=== PATIENT | female | born 1940 | race Hispanic/Latino ===

== ENCOUNTER 2016-10-16 20:30 | Emergency (ER) | payer OTHER ==
[~2016-10-16 20:30] MED LIST: ATORVASTATIN CA20 MG PO; ESCITALOPRAM10 MG PO; LEVOTHYROXIN0.137 MG PO; LOTREL 10 MG-201 CAP PO; NAMENDA10 MG PO; RITE AID KRILL500 MG PO; TORADOL10 MG PO; VITAMIN D31000 I1 PO
--- NOTE | 2016-10-16 20:49 | ED HEAD/FACIAL INJ COMPLAINT ---
History of Present Illness General Chief Complaint: Fall Stated Complaint: FALL LAC TO BACK OF HEAD/DIZZINESS/LUCERO Source: family, old records Exam Limitations: dementia Vital Signs & Intake/Output Vital Signs & Intake/Output Vital Signs Date Time Temp Pulse Resp B/P Pulse O2 O2 Flow FiO2 Ox Delivery Rate 10/16 2044 98.2 80 17 167/80 98 Room Air Room Air Allergies Coded Allergies: No Known Allergies (10/16/16) Reconcile Medications Amlodipine Besylate/Benazepr (Lotrel 10 MG-20 MG) 1 CAP CAP 1 CAP PO DAILY BP (Reported) Atorvastatin Calcium (Lipitor) 20 MG TABLET 1 TAB PO DAILY CHOLESTEROL ( Reported) CHOLECALCIFEROL (VITAMIN D3) (Vitamin D3) 1,000 UNIT CAPSULE 1 SGL PO DAILY SUPPLEMENT (Reported) Escitalopram Oxalate 10 MG TABLET 1 TAB PO DAILY MENTAL HEALTH (Reported) Ketorolac Tromethamine (Toradol) 10 MG TAB 1 TAB PO BID PRN HEADACHE Krill Oil ([employer] Krill Oil) (Unknown Strength) SGL (Unknown Dose) PO DAILY SUPPLEMENT (Reported) Levothyroxine Sodium 0.137 MG TAB 1 TAB PO DAILY AC THYROID (Reported) Memantine Hydrochloride (Namenda) 10 MG TABLET 1 TAB PO DAILY DEMENTIA ( Reported) Triage Note: PT TO TRIAGE FOR FALLING BACKWARDS AND HITTING THE BACK OF HER HEAD. PT HAS DEMENTIA AND IS UNABLE TO EXPLAINED SITUATION. FAMILY EXPLAINS THAT SHE WAS OUTSIDE WHEN THEY HEARD A THUD. FAMILY STATES THEY WENT OUT IMMEDIATELY AND FOUND HER ON HER BACK WITH A LAC TO THE BACK OF THE HEAD. THEY ARE UNSURE IF SHE LOST CONSCIOUSNESS. SHE COMPLAINS OF HEAD PAIN. BLEEDING CONTROLED BUT LAC IS NO VISIUALED TO CLOTS IN HAIR. PT IS NOT ON BLOOD THINNERS. Triage Nurses Notes Reviewed? yes HPI: Patient had an unwitnessed fall at home. Family thinks that she got tangled in her slippers however they're not sure since they were not with her at the time. Patient does not have a history of falls. Patient does have Alzheimer's dementia is unable to provide any history. Patient does have a small laceration to the back of her head. Bleeding was controlled prior to arrival. Patient has been acting appropriately since the fall per the family. Past History Travel History Traveled to [place] past 21 day No Medical History Any Pertinent Medical History? see below for history Neurological: dementia EENT: NONE Cardiovascular: hypertension, hyperlipidemia Respiratory: NONE Gastrointestinal: NONE Hepatic: NONE Renal: NONE Musculoskeletal: NONE Psychiatric: NONE Endocrine: NONE Blood Disorders: NONE Cancer(s): NONE PARALEGAL/Reproductive: NONE Pneumonia Vaccine: 08/18/10 Influenza Vaccine: 03/21/11 Surgical History Surgical History: non-contributory Psychosocial History Who do you live with Spouse What is your primary language Guatemalan Tobacco Use: Never used ETOH Use: denies use Illicit Drug Use: denies illicit drug use Family History Hx Contributory? No Review of Systems Review of Systems Constitutional: Reports: see HPI. Physical Exam Physical Exam General Appearance: well developed/nourished, awake Head: SMALL SUPERFICIAL LACERATION TO POSTERIOR SCALP, NO SUTURES OR GUERO NEEDED Eyes: Bilateral: PERRL, EOMI. Ears, Nose, Throat: normal pharynx, hearing grossly normal Neck: normal inspection, supple Respiratory: normal breath sounds, chest non-tender, no respiratory distress, lungs clear Cardiovascular: regular rate/rhythm, normal peripheral pulses Gastrointestinal: normal bowel sounds, soft Extremities: normal inspection, normal capillary refill, normal range of motion, no edema Psychiatric: awake Cranial Nerves: normal hearing, PERRL Coordination/Gait: normal gait Motor/Sensory: no motor/sensory deficits Skin: intact, normal color, warm/dry Progress Differential Diagnosis: c-spine injury, ICH, skull fracture Plan of Care: Orders Procedure Date/time Status Telemetry/Mammal Control Agent 10/17 2047 Active TROPONIN LEVEL 10/17 2047 Complete COMPREHENSIVE METABOLIC PANEL 10/17 2047 Complete CBC WITHOUT DIFFERENTIAL 10/17 2047 Complete EKG 10/17 2047 Active Laboratory Tests 10/16/162121: CBC w Diff NO MAN DIFF REQ, RBC 4.73, MCV 84.8, MCH 29.0, RDW 13.3, MPV 6.9 L, Gran % 84.8 H, Lymphocytes % 9.6 L, Monocytes % 5.0, Eosinophils % 0.4, Basophils % 0.2, Absolute Granulocytes 9.3 H, Absolute Lymphocytes 1.0 L, Absolute Monocytes 0.5, Absolute Eosinophils 0, Absolute Basophils 0, PUBS MCHC 34.2 10/16/162120: Anion Gap 12, Estimated GFR > 60, BUN/Creatinine Ratio 22.9, Glucose 159 H, Calcium 9.8, Total Bilirubin 0.4, AST 22, ALT 38, Alkaline Phosphatase 74, Troponin I < 0.01, Total Protein 6.9, Albumin 4.2, Globulin 2.7, Albumin/ Globulin Ratio 1.6 10/16/162047: Urine Color Cancelled, Urine Clarity Cancelled, Urine pH Cancelled, Ur Specific [place] Cancelled, Urine Protein Cancelled, Urine Ketones Cancelled, Urine Nitrite Cancelled, Urine Bilirubin Cancelled, Urine Urobilinogen Cancelled, Ur Leukocyte Esterase Cancelled, Ur Microscopic Cancelled, Urine Hemoglobin Cancelled, Urine Glucose Cancelled Diagnostic Imaging: Viewed by Me: CT Scan. Discussed w/RAD: CT Scan. Radiology Impression: PATIENT: DASIA EARLY PRESENT AGE: 76 PATIENT ACCOUNT NO: [id number] : 40 LOCATION: [facility] ORDERING PHYSICIAN: MILENA RIVAS MD SERVICE DATE: 10/16/16-2032 EXAM TYPE: CAT - CT CERV SPINE WO IV CONTRAST; CT HEAD WO IV CONTRAST EXAMINATION: CT HEAD WITHOUT CONTRAST CT CERVICAL SPINE WITHOUT CONTRAST CLINICAL INFORMATION: Fall. Head injury. COMPARISON: CT head 10/06/2013 TECHNIQUE: Imaging was performed from the skull base to vertex without intravenous administration of contrast. In addition, helical noncontrast CT imaging was acquired through the cervical spine and source images were reviewed along with axial reconstructions and sagittal and coronal MPRs. DLP: 825.45 mGy-cm FINDINGS: HEAD: Scalp hematoma at the posterior occipital parietal region on the left. No intracranial mass, hemorrhage, or midline shift is visualized. The ventricles and sulci are age- appropriate. No extra-axial collections are identified. The paranasal sinuses and mastoid air cells are well aerated. CERVICAL SPINE: There is no evidence of acute cervical spine fracture. Vertebral bodies remain normal in height, alignment is anatomic. No pre- or paravertebral soft tissue abnormality is identified. Degenerative disc narrowing with endplate spurs C5-C6 and C6-C7 disc levels. Limited assessment of the lung apices is unremarkable. IMPRESSION: 1. No acute intracranial pathology. 2. No CT evidence of acute cervical spine fracture or traumatic subluxation DICTATED BY: SARA MANDEL MD DATE/TIME DICTATED:2114 EXAMINATION SUPERVISOR:DUSTY DATE/TIME TRANSCRIBED:10/16/162114 CONFIDENTIAL, DO NOT COPY WITHOUT APPROPRIATE AUTHORIZATION. <Electronically signed in Other Vendor System> SIGNED BY: SARA MANDEL MD 10/16/162123 Initial ED EKG: normal sinus rhythm, LVH, nonspecific ST T wave chg Prior EKG: unchanged Departure Departure Disposition: HOME OR SELF CARE Condition: Stable Clinical Impression Primary Impression: Head injury Referrals: SARAH MADRID MD (PCP/Family) Additional Instructions: REUTRN FOR ANY CONCERNS Departure Forms: Customer Survey General Discharge Information
--- NOTE | 2016-10-16 21:24 | CT SCAN REPORT ---
EXAMINATION: CT HEAD WITHOUT CONTRAST CT CERVICAL SPINE WITHOUT CONTRAST CLINICAL INFORMATION: Fall. Head injury. COMPARISON: CT head 10/06/2013 TECHNIQUE: Imaging was performed from the skull base to vertex without intravenous administration of contrast. In addition, helical noncontrast CT imaging was acquired through the cervical spine and source images were reviewed along with axial reconstructions and sagittal and coronal MPRs. DLP: 825.45 mGy-cm FINDINGS: HEAD: Scalp hematoma at the posterior occipital parietal region on the left. No intracranial mass, hemorrhage, or midline shift is visualized. The ventricles and sulci are age-appropriate. No extra-axial collections are identified. The paranasal sinuses and mastoid air cells are well aerated. CERVICAL SPINE: There is no evidence of acute cervical spine fracture. Vertebral bodies remain normal in height, alignment is anatomic. No pre- or paravertebral soft tissue abnormality is identified. Degenerative disc narrowing with endplate spurs C5-C6 and C6-C7 disc levels. Limited assessment of the lung apices is unremarkable. IMPRESSION: 1. No acute intracranial pathology. 2. No CT evidence of acute cervical spine fracture or traumatic subluxation
[2016-10-16 21:29] LABS: ABSOLUTE BASOPHIL COUNT 0 /CUMM (0.0-0.2); ABSOLUTE EOSINOPHIL COUNT 0 /CUMM (0.0-0.7); ABSOLUTE GRANULOCYTE CT 9.3 /CUMM (1.4-6.5); ABSOLUTE MONOCYTE COUNT 0.5 /CUMM (0.10-0.60); BASOPHIL % 0.2 % (0.0-2.0); EOSINOPHIL % 0.4 % (0-5); GRANULOCYTE % 84.8 % (42.2-75.2); HEMATOCRIT 40.1 % (37-47); MEAN CORPUSCULAR HGB CONC 34.2 G/DL (33.0-37.0); MEAN CORPUSCULAR VOLUME 84.8 FL (81.0-99.0); MEAN PLATELET VOLUME 6.9 FL (7.4-10.4); PLATELET COUNT 239 /CUMM (130-400); RBC DISTRIBUTION WIDTH 13.3 % (11.5-14.5); RED BLOOD CELL CT 4.73 /CUMM (4.20-5.40); WHITE BLOOD CELL COUNT 10.9 /CUMM (4.8-10.8)
[2016-10-16 23:24] VITALS: BP 150/72
== END 2016-10-16 23:24 ==
LOC: ERH 20:30
PROVIDERS: Emergency Medicine
DX: S09.90XA Unspecified injury of head, initial encounter (principal); W19.XXXA Unspecified fall, initial encounter; Y92.009 Unspecified place in unspecified non-institutional (private) residence as the place of occurrence of the external cause; Y93.9 Activity, unspecified
CPT/HCPCS: 93005; 93010

== ENCOUNTER 2017-08-14 18:46 | Inpatient (IN) | payer OTHER ==
[~2017-08-14] VITALS: Ht 152.4 cm; Wt 45.4 kg
[2017-08-14 19:22] LABS: ABSOLUTE BASOPHIL COUNT 0 /CUMM (0.0-0.2); ABSOLUTE EOSINOPHIL COUNT 0 /CUMM (0.0-0.7); ABSOLUTE GRANULOCYTE CT 4.8 /CUMM (1.4-6.5); ABSOLUTE LYMPH COUNT 0.7 /CUMM (1.2-3.4); ABSOLUTE MONOCYTE COUNT 0.7 /CUMM (0.10-0.60); BASOPHIL % 0.5 % (0.0-2.0); EOSINOPHIL % 0.1 % (0-5); HEMATOCRIT 39.6 % (37-47); MEAN CORPUSCULAR HGB 28.6 PG (27.0-31.0); MEAN CORPUSCULAR HGB CONC 34.4 G/DL (33.0-37.0); MEAN CORPUSCULAR VOLUME 83.1 FL (81.0-99.0); MEAN PLATELET VOLUME 7.4 FL (7.4-10.4); PLATELET COUNT 177 /CUMM (130-400); RBC DISTRIBUTION WIDTH 12.6 % (11.5-14.5); RED BLOOD CELL CT 4.77 /CUMM (4.20-5.40); WHITE BLOOD CELL COUNT 6.3 /CUMM (4.8-10.8)
--- NOTE | 2017-08-14 19:27 | ED MVC/FALL/TRAUMA COMPLAINT ---
See Addendum History of Present Illness General Chief Complaint: Fall Stated Complaint: FALL, AMS Source: family Exam Limitations: clinical condition, dementia Vital Signs & Intake/Output Vital Signs & Intake/Output Vital Signs Date Time Temp Pulse Resp B/P B/P Pulse O2 O2 Flow FiO2 Mean Ox Delivery Rate 08/14 2129 98.6 67 20 116/58 97 08/14 2032 Room Air 08/14 1856 98.3 65 18 141/63 98 Room Air Allergies Coded Allergies: No Known Allergies (10/16/16) Reconcile Medications Alendronate Sodium (Fosamax) 70 MG TABLET 1 TAB PO QSUN OSTEOPOROSIS ( Reported) in the morning, at least 30 minutes before the first food, beverage, or medication of the day Amlodipine Besylate/Benazepril (Amlodipine-Benazepril 10-20 MG) 10 MG-20 MG CAPSULE 1 CAP PO DAILY BP (Reported) Atorvastatin Calcium 20 MG TABLET 1 TAB PO DAILY CHOLESTEROL (Reported) Cholecalciferol (Vitamin D3) (Vitamin D) 1,000 UNIT TABLET 1 TAB PO DAILY SUPPLEMENT (Reported) Escitalopram Oxalate 10 MG TABLET 1 TAB PO DAILY MENTAL HEALTH (Reported) Fish Oil/Borage/Flax/Om3,6,9#1 ([place] 3-6-9 1,200 MG Softgel) (Unknown Strength) CAPSULE (Unknown Dose) PO DAILY SUPPLEMENT (Reported) Levothyroxine Sodium 125 MCG TABLET 1 TAB PO DAILY THYROID (Reported) Memantine HCl (Namenda XR) 14 MG CAP.SPR.24 1 CAP PO DAILY MEMORY (Reported) Triage Note: PT BIBA FROM HOME S/P UNWITNESSED FALL. FAMILY FOUND PT IN BED WITH ABRASIONS TO BILATERAL KNESS AND BUMP TO RIGHT FOREHEAD. FAMILY ALSO FOUND A PUDDLE OF URINE ON FLOOR NEXT TO BED. PER EMS PT RESPONDED TO FIMALLY WITH VIGOROUS STERNAL RUB AND WAS HAVING AMS MORE THAN NORMAL. HX DEMENTIA. PT RESPONDING ON ARRIVAL WHEN SPOKEN TO IN [place]. Triage Nurses Notes Reviewed? yes Onset: Abrupt Duration: UNKNOWN DURATION Timing: single episode today Severity: moderate Injuries/Fall Location: head, lower extremity Method of Injury: fall Loss of Consciousness: unsure Modifying Factors: Worsens With: movement. Associated Symptoms: confusion : No HPI: 77 yo woman, h/o dementia, from home, found by family with increased confusion. Per her daughter, she was found after having fallen in the bathroom. She was brought to bed. She had urinated upon herself. Her daughter notes increased confusion and lethargy. At baseline, she is verbal , slightly confused, and able to ambulate. Presently, she is minimally responsive to verbal stimuli and non verbal, resting comfortably in bed, per the family. Past History Medical History Any Pertinent Medical History? 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 No Review of Systems Review of Systems Constitutional: Reports: no symptoms. Eyes: Reports: no symptoms. Ears, Nose, Throat, Mouth: Reports: no symptoms. Respiratory: Reports: no symptoms. Cardiovascular: Reports: no symptoms. Gastrointestinal/Abdominal: Reports: no symptoms. Genitourinary: Reports: no symptoms. Musculoskeletal: Reports: no symptoms. Skin: Reports: no symptoms. Neurological/Psychological: Reports: no symptoms. All Other Systems: Reviewed and Negative Physical Exam Physical Exam General Appearance: well developed/nourished, lethargic Head: abrasion to right forehead Eyes: Bilateral: normal appearance, PERRL, EOMI. Ears, Nose, Throat, Mouth: dry mucosa Neck: in a collar, no focal tenderness, exam compromised by pt condition Respiratory: normal breath sounds, chest non-tender, no respiratory distress, quiet respiration, lungs clear Cardiovascular: regular rate/rhythm Gastrointestinal: normal bowel sounds, soft, non-tender, no organomegaly Extremities: no focal bony tenderness. bilateral knee with abrasions, no bony deformity. Neurologic/Psych: no motor/sensory deficits, lethargic Skin: warm/dry [place] Coma Score Michelle Coma Score Response Value Best Eye Response (Michelle): open to voice 3 Best Verbal Response: no verbal response 1 Best Motor Response: localizing pain 5 Total 9 Core Measures ACS in differential dx? No CVA/TIA Diagnosis No Sepsis Present: No Sepsis Focused Exam Completed? No Progress Differential Diagnosis: C/T/L spine injury, ext injury, ICH, pelvis injury Plan of Care: Orders Procedure Date/time Status Nothing by Mouth 08/15 B Active Saline Lock 08/14 2213 Active Misc Message 08/14 2213 Active ED Holding Orders 08/14 2213 Active Admit to inpatient 08/14 2213 Active Vital Signs 08/14 2213 Active Code Status 08/14 2213 Active Straight Cath 08/14 1946 Active Add-on Test (ER Only) 08/14 1936 Active ARTERIAL BLOOD GAS (GEN) 08/14 1929 Complete Add-on Test (ER Only) 08/14 1928 Active URINALYSIS 08/14 1928 Complete LACTIC ACID 08/14 1910 Complete CREATINE PHOSPHOKINASE 08/14 1910 Complete TROPONIN LEVEL 08/14 1904 Complete LIPASE 08/14 1904 Complete HEPATIC FUNCTION PANEL 08/14 1904 Complete CBC WITHOUT DIFFERENTIAL 08/14 1904 Complete BASIC METABOLIC PANEL 08/14 1904 Complete AMYLASE 08/14 1904 Complete EKG 08/14 1904 Active Current Medications Sig/Nicki Start time Last Medication Dose Stop Time Status Admin Sodium Chloride 1,000 ML BOLUS ONE 08/14 2129 AC 08/14 (Normal Saline 0.9%) 08/14 2228 214 Laboratory Tests 08/14/172119: pH 7.48 H, pCO2 32 L, pO2 93, HCO3 23, ABG O2 Sat (Measured) 97.0, Carboxyhemoglobin 0.2 L, O2 Concentration % RA, Phlebotomy Draw Site RIGHT RADIAL 08/14/171939: Urinalysis LIGHT H, Urine Color YEL, Urine Clarity HAZY H, Urine pH 6.5, Ur Specific [place] 1.020, Urine Protein 30 H, Urine Ketones 15 H, Urine Nitrite NEG, Urine Bilirubin NEG, Urine Urobilinogen 0.2, Ur Leukocyte Esterase NEG, Ur Microscopic SEDIMENT EXAMINED, Urine WBC 1-3 H, Urine Hemoglobin NEG, Urine Glucose NEG 08/14/171910: Anion Gap 12, Estimated GFR > 60, BUN/Creatinine Ratio 31.3 H, Glucose 107 H, Lactic Acid 0.9, Calcium 9.8, Total Bilirubin 0.6, Direct Bilirubin 0.2, AST 46 H, ALT 52, Alkaline Phosphatase 69, Creatine Kinase 495 H, Troponin I < 0.01, Total Protein 6.9, Albumin 4.3, Amylase 57, Lipase 81, CBC w Diff NO MAN DIFF REQ, RBC 4.77, MCV 83.1, MCH 28.6, MCHC 34.4, RDW 12.6, MPV 7.4, Gran % 76.0 H, Lymphocytes % 11.5 L, Monocytes % 11.9 H, Eosinophils % 0.1, Basophils % 0.5, Absolute Granulocytes 4.8, Absolute Lymphocytes 0.7 L, Absolute Monocytes 0.7 H, Absolute Eosinophils 0, Absolute Basophils 0 Diagnostic Imaging: Viewed by Me: CT Scan. Discussed w/RAD: CT Scan. Radiology Impression: PATIENT: DASIA EARLY PRESENT AGE: 77 PATIENT ACCOUNT NO: [id number] : 40 LOCATION: [facility] ORDERING PHYSICIAN: Demarco Lorenzo MD SERVICE DATE: 08/14/17 EXAM TYPE: CAT - CT CERV SPINE WO IV CONTRAST; CT HEAD WO IV CONTRAST EXAMINATION: CT HEAD WITHOUT CONTRAST CT CERVICAL SPINE WITHOUT CONTRAST CLINICAL INFORMATION: Injury , trauma. COMPARISON: CT scan of the head and cervical spine 10/16/2016. TECHNIQUE: Multidetector CT imaging of the head and cervical spine was performed without the use of intravenous contrast. Coronal and sagittal reformatted images were generated at the technologist workstation. DLP: 825.45 mGy-cm. FINDINGS: CT head: There is no evidence of acute intracranial hemorrhage or territorial infarction. No abnormal mass-effect or midline shift is seen. [place] to white matter differentiation is well preserved. No extra-axial fluid collections are identified. There is commensurate prominence of the ventricles and sulci consistent with mild diffuse volume loss. There is low-attenuation in the periventricular and subcortical white matter consistent with chronic microvascular ischemic changes. There are no acute osseous findings. There is irregularity of the nasal bones, most consistent with sequelae of old trauma. There are no acute scalp contusions or hematomas. There is a scar in the region of the previously noted posterior scalp nondenominational. There is hyperostosis frontalis interna. The mastoid air cells are well-aerated. There are secretions in the posterior left nasal cavity and there is mucoperiosteal thickening in the left maxillary sinus. CT cervical spine: There is reversal of the cervical lordosis at the level of C5-C6. There is marked narrowing of intervertebral disc height at C5-C6 and C6-C7 with marginal osteophytes, demonstrated on the prior study. There are no acute compression fractures. The lateral masses of C1 and C2 are normally aligned and the dens is intact. There is normal alignment of the atlantooccipital joints. Vertebral body heights are maintained. There are multilevel facet arthropathic changes. There are atheromatous calcifications of the left vertebral artery. There is an area of increased density in the posterior right thyroid gland which measures 0.5 cm in diameter. The lung apices are well-aerated. IMPRESSION: 1. There are no acute bleeds or territorial infarcts. There are no fractures or large scalp contusions. 2. There are degenerative changes in the cervical spine which were demonstrated on prior imaging. There are no acute fractures or subluxations. DICTATED BY: Rusty Casper MD DATE/TIME DICTATED:08/14/172015 PAYROLL ANALYST:DUSTY DATE/TIME TRANSCRIBED:08/14/172015 CONFIDENTIAL, DO NOT COPY WITHOUT APPROPRIATE AUTHORIZATION. <Electronically signed in Other Vendor System> SIGNED BY: Rusty aCsper MD 08/14/172027, PATIENT: DASIA EARLY PRESENT AGE: 77 PATIENT ACCOUNT NO: [id number] : 40 LOCATION: [facility] ORDERING PHYSICIAN: Demarco Lorenzo MD SERVICE DATE: 08/14/17 EXAM TYPE: RAD - XRY-KNEE COMPLETE LEFT; XRY-KNEE COMPLETE RIGHT EXAMINATIONS: BILATERAL KNEES 4 VIEWS CLINICAL INFORMATION: Fall, trauma. COMPARISON: None. TECHNIQUE: AP, lateral and left and right oblique views of the left and right knees were obtained. FINDINGS: Right knee: There are no fractures or dislocations, and the patellofemoral and knee joints are normally aligned. There is mild soft tissue swelling along the medial aspect of the knee joint superiorly. There is no suprapatellar joint effusion. There are no radiodense foreign bodies. Left knee: There is normal alignment of the patellofemoral and knee joints. No fractures are demonstrated. The soft tissues are unremarkable. There is no joint effusion. There are no radiodense foreign bodies. IMPRESSION: 1. There are no fractures or subluxations. 2. There appears to be some soft tissue swelling along the medial aspect of the right knee joint. Correlate clinically. There are no definite joint effusions. DICTATED BY: Rusty Casper MD DATE/TIME DICTATED:08/14/172042 PAYROLL ANALYST:DUSTY DATE/TIME TRANSCRIBED:08/14/172042 CONFIDENTIAL, DO NOT COPY WITHOUT APPROPRIATE AUTHORIZATION. <Electronically signed in Other Vendor System> SIGNED BY: Rusty Casper MD 08/14/172050 Initial ED EKG: normal intervals, inferior q waves Departure Departure Disposition: STILL A PATIENT Condition: Stable Clinical Impression Primary Impression: Dementia Secondary Impressions: Dehydration, Elevated CPK, Mental status change Referrals: Babar Puente MD (PCP/Family) Departure Forms: Customer Survey General Discharge Information Admission Note Spoke With: Babar Puente MD Documentation of Exam: Documentation of any treatments & extenuating circumstances including Concerns Regarding Discharge (functional status, medication knowledge or non-compliance, living conditions, etc.) that warrant an admission rather than observation: pt with increased lethargy, in context of dehydration, fall, dementia... pt merits iv fluids and re-assessment in AM to consider if returns to baseline. pt likely will need short vs superintendent container terminal rehab.
[2017-08-14] MEDS ORDERED: AMLODIPINE-BEN1 EAC4 PO (19:45)
[2017-08-14] MEDS ORDERED: NAMENDA XR14 M1 PO (19:46)
[2017-08-14] MEDS ORDERED: ESCITALOPRAM OX10 MG PO (19:46)
[2017-08-14] MEDS ORDERED: ATORVASTATIN CA20 M1 PO (19:48)
[2017-08-14] MEDS ORDERED: LEVOTHYROXINE125 MCG PO (19:48)
[2017-08-14] MEDS ORDERED: VITAMIN D1000 UNIT PO (19:49)
[2017-08-14] MEDS ORDERED: OMEGA 3-6-9 11200 MG PO (19:49)
[2017-08-14] MEDS ORDERED: FOSAMAX70 M1 PO (19:49)
--- NOTE | 2017-08-14 20:28 | CT SCAN REPORT ---
EXAMINATION: CT HEAD WITHOUT CONTRAST CT CERVICAL SPINE WITHOUT CONTRAST CLINICAL INFORMATION: Injury, trauma. COMPARISON: CT scan of the head and cervical spine 10/16/2016. TECHNIQUE: Multidetector CT imaging of the head and cervical spine was performed without the use of intravenous contrast. Coronal and sagittal reformatted images were generated at the technologist workstation. DLP: 825.45 mGy-cm. FINDINGS: CT head: There is no evidence of acute intracranial hemorrhage or territorial infarction. No abnormal mass-effect or midline shift is seen. [place] to white matter differentiation is well preserved. No extra-axial fluid collections are identified. There is commensurate prominence of the ventricles and sulci consistent with mild diffuse volume loss. There is low-attenuation in the periventricular and subcortical white matter consistent with chronic microvascular ischemic changes. There are no acute osseous findings. There is irregularity of the nasal bones, most consistent with sequelae of old trauma. There are no acute scalp contusions or hematomas. There is a scar in the region of the previously noted posterior scalp nondenominational. There is hyperostosis frontalis interna. The mastoid air cells are well-aerated. There are secretions in the posterior left nasal cavity and there is mucoperiosteal thickening in the left maxillary sinus. CT cervical spine: There is reversal of the cervical lordosis at the level of C5-C6. There is marked narrowing of intervertebral disc height at C5-C6 and C6-C7 with marginal osteophytes, demonstrated on the prior study. There are no acute compression fractures. The lateral masses of C1 and C2 are normally aligned and the dens is intact. There is normal alignment of the atlantooccipital joints. Vertebral body heights are maintained. There are multilevel facet arthropathic changes. There are atheromatous calcifications of the left vertebral artery. There is an area of increased density in the posterior right thyroid gland which measures 0.5 cm in diameter. The lung apices are well-aerated. IMPRESSION: 1. There are no acute bleeds or territorial infarcts. There are no fractures or large scalp contusions. 2. There are degenerative changes in the cervical spine which were demonstrated on prior imaging. There are no acute fractures or subluxations.
--- NOTE | 2017-08-14 20:51 | RADIOLOGY REPORT ---
EXAMINATIONS: BILATERAL KNEES 4 VIEWS CLINICAL INFORMATION: Fall, trauma. COMPARISON: None. TECHNIQUE: AP, lateral and left and right oblique views of the left and right knees were obtained. FINDINGS: Right knee: There are no fractures or dislocations, and the patellofemoral and knee joints are normally aligned. There is mild soft tissue swelling along the medial aspect of the knee joint superiorly. There is no suprapatellar joint effusion. There are no radiodense foreign bodies. Left knee: There is normal alignment of the patellofemoral and knee joints. No fractures are demonstrated. The soft tissues are unremarkable. There is no joint effusion. There are no radiodense foreign bodies. IMPRESSION: 1. There are no fractures or subluxations. 2. There appears to be some soft tissue swelling along the medial aspect of the right knee joint. Correlate clinically. There are no definite joint effusions.
--- NOTE | 2017-08-14 20:53 | CT SCAN REPORT ---
EXAMINATION: CT CHEST WITHOUT IV CONTRAST CT ABDOMEN AND PELVIS WITHOUT IV CONTRAST CLINICAL INFORMATION: 77-year-old female presents with history of injury/trauma. COMPARISON: 06/22/2012. TECHNIQUE: Noncontrast multidetector CT imaging examination of the chest, abdomen and pelvis was performed . Axial images are displayed at 0.625 mm and 5 mm slice thickness. Coronal and sagittal reformatted images were generated at the technologist's workstation and submitted for review. DLP: 394 mGy-cm FINDINGS: CHEST - LUNGS and PLEURA: Trachea and central airways are widely patent and normal in caliber. Small, 0.3 cm noncalcified nodule of the right upper lobe (image 122, series 5). Small, 0.2 cm calcified granuloma of the left lower lobe (image 317, series 5). No suspicious lung nodule or mass. Mild atelectasis of left lower lobe. No pulmonary consolidation, edema, pneumothorax or pleural effusion. MEDIASTINUM: The heart size is normal. [id number] atherosclerotic calcification of coronary arteries and thoracic aorta without aortic aneurysm. No pericardial effusion. The esophagus is unremarkable. Thyroid gland is atrophied. No mediastinal mass or fluid collection. LYMPHATICS: No pathologic sized axillary, hilar or mediastinal lymph nodes. CHEST WALL/BONES: Discovertebral degenerative changes of C5-C6 and C6-C7. Also, mild multilevel disc space narrowing and osteophyte formation of the thoracic spine. Thoracic vertebra have normal height and alignment. No evidence of an acute, displaced rib fracture or sternal injury. Small sclerotic focus in the right scapula is likely a bone island. Also, the small nonaggressive sclerotic focus in the left lateral ninth rib is likely a bone island. There is a hemangioma of the T11 vertebral body. ABDOMEN AND PELVIS - HEPATOBILIARY: Liver has normal size, contour and attenuation. No perihepatic fluid collection. Gallbladder is unremarkable. No intrahepatic or extrahepatic bile duct dilatation. PANCREAS: Unremarkable. SPLEEN: Unremarkable. ADRENAL GLANDS: Unremarkable. KIDNEYS, URETERS, BLADDER: Kidneys are normal in size. No nephrolithiasis, hydronephrosis or perinephric edema. 0.6 cm hyperdense focus within the interpolar region left kidney has attenuation of 70 HU, compatible with a hyperdense cyst. The ureters are unremarkable. Urinary bladder has some hyperdense material along its left posterolateral wall, likely calculi; this may be confirmed on bladder ultrasound. GI TRACT AND PERITONEUM: Bowel loops are normal in size. Appendix is normal. No evidence of acute inflammation or obstruction along the gastrointestinal tract. No hemoperitoneum or pneumoperitoneum. ABDOMINAL WALL: No abdominal wall hematoma. VASCULAR: Mild atherosclerotic calcification of the abdominal aorta and iliac arteries without aneurysm. LYMPH NODES: No pathologic sized lymph nodes within the abdomen or pelvis. PELVIC VISCERA: There are calcified leiomyomas of the uterus. No adnexal mass or pelvic free fluid. OSSEOUS STRUCTURES: Lumbar vertebra have well preserved height and alignment. No acute fracture or subluxation in the lumbar spine, pelvis or proximal femurs. There are a several bone islands in the pelvis. No suspicious osseous lesions. IMPRESSION: 1. No evidence of traumatic injury within the chest, abdomen or pelvis on this noncontrast examination. 2. Leiomyomatous uterus. 3. There is some heterogeneous hyperdensity along the left posterolateral bladder wall -- presumably bladder calculi. This incidental finding may be confirmed on a routine follow-up bladder ultrasound examination.
--- NOTE | 2017-08-14 22:27 | History & Physical ---
See Addendum Abiel ROBLES,[facility] 08/14/17 3066: General Information and HPI MD Statement: I have seen and personally examined DASIA EARLY and documented this H&P. The patient is a 77 year old F who presented with a patient stated chief complaint of [fall]. Source of Information: family History of Present Illness: 77-year-old female with a past medical history of hypertension, hyperlipidemia, hypothyroidism, Alzheimer's dementia presenting after a presumed fall. The history is given by the patient's son and daughter. They state that the patient was found in bed by a cousin around 5 PM. There was noted stool found outside the bedroom door. They also noticed a bump on her head. They state that the patient was not responding however the patient did open her eyes when she was with EMS. They state that the patient and her at baseline sleep all day and are much active at night. They state that the patient is incontinence to stool and urine at baseline. The patient and her that downstairs from the family. There is a visiting nurse Friday who help the patient and her . The patient walks on her own without any assistance at baseline. The family denies the patient complaining of any headaches, dizziness , chest pain, cough, fevers, abdominal pain, nausea vomiting, or changes in elimination. They state that the patient has no change in her appetite and drinks fairly well at home. Allergies/Medications Allergies: Coded Allergies: No Known Allergies (10/16/16) Home Med list Alendronate Sodium (Fosamax) 70 MG TABLET 1 TAB PO QSUN OSTEOPOROSIS ( Reported) in the morning, at least 30 minutes before the first food, beverage, or medication of the day Amlodipine Besylate/Benazepril (Amlodipine-Benazepril 10-20 MG) 10 MG-20 MG CAPSULE 1 CAP PO DAILY BP (Reported) Atorvastatin Calcium 20 MG TABLET 1 TAB PO DAILY CHOLESTEROL (Reported) Cholecalciferol (Vitamin D3) (Vitamin D) 1,000 UNIT TABLET 1 TAB PO DAILY SUPPLEMENT (Reported) Escitalopram Oxalate 10 MG TABLET 1 TAB PO DAILY MENTAL HEALTH (Reported) Fish Oil/Borage/Flax/Om3,6,9#1 ([place] 3-6-9 1,200 MG Softgel) (Unknown Strength) CAPSULE (Unknown Dose) PO DAILY SUPPLEMENT (Reported) Levothyroxine Sodium 125 MCG TABLET 1 TAB PO DAILY THYROID (Reported) Memantine HCl (Namenda XR) 14 MG CAP.SPR.24 1 CAP PO DAILY MEMORY (Reported) Past History Travel History Traveled to [place] past 21 day No Medical History Neurological: dementia EENT: NONE Cardiovascular: hypertension, hyperlipidemia Respiratory: NONE Gastrointestinal: NONE Hepatic: NONE Renal: NONE Musculoskeletal: NONE Psychiatric: NONE Endocrine: NONE Blood Disorders: NONE Cancer(s): NONE 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 Cardiovascular: Reports: no symptoms. Respiratory: Reports: no symptoms. GI: Reports: no symptoms. Genitourinary: Reports: no symptoms. Musculoskeletal: Reports: no symptoms. Exam & Diagnostic Data Last 24 Hrs of Vital Signs/I&O Vital Signs Date Time Temp Pulse Resp B/P B/P Pulse O2 O2 Flow FiO2 Mean Ox Delivery Rate 08/15 0035 98.2 53 20 132/78 94 Room Air 08/15 0019 Room Air 08/14 2332 97.0 60 20 160/76 98 Room Air 08/14 2130 98.6 67 20 116/58 97 08/14 2033 Room Air 08/14 1857 98.3 65 18 141/63 98 Room Air Intake & Output 08/15 0800 08/15 0000 08/14 1600 Intake Total 0 Output Total 175 Balance -175 Intake, Oral 0 Output, Urine 175 Patient 99 lb 15.99 oz 99 lb 15.99 oz Weight Weight Bed scale Estimated Measurement Method Physical Exam General Appearance patient has her eyes closed HEENT right forehead 2x1cm bruising Cardiovascular Regular Rate, Normal S1, Normal S2 Lungs Clear to Auscultation, Normal Air Movement Abdomen Normal Bowel Sounds, Soft, No Tenderness Extremities no lower extremity swelling Vascular 2+ pedal and radial pulses Body Front and Back (Adult) 1) Last 24 Hrs of Labs/Daren: Laboratory Tests 08/14/172119: pH 7.48 H, pCO2 32 L, pO2 93, HCO3 23, ABG O2 Sat (Measured) 97.0, Carboxyhemoglobin 0.2 L, O2 Concentration % RA, Phlebotomy Draw Site RIGHT RADIAL 08/14/171939: Urinalysis LIGHT H, Urine Color YEL, Urine Clarity HAZY H, Urine pH 6.5, Ur Specific [place] 1.020, Urine Protein 30 H, Urine Ketones 15 H, Urine Nitrite NEG, Urine Bilirubin NEG, Urine Urobilinogen 0.2, Ur Leukocyte Esterase NEG, Ur Microscopic SEDIMENT EXAMINED, Urine WBC 1-3 H, Urine Hemoglobin NEG, Urine Glucose NEG 08/14/171910: Anion Gap 12, Estimated GFR > 60, BUN/Creatinine Ratio 31.3 H, Glucose 107 H, Lactic Acid 0.9, Calcium 9.8, Total Bilirubin 0.6, Direct Bilirubin 0.2, AST 46 H, ALT 52, Alkaline Phosphatase 69, Creatine Kinase 495 H, Troponin I < 0.01, Total Protein 6.9, Albumin 4.3, Amylase 57, Lipase 81, CBC w Diff NO MAN DIFF REQ, RBC 4.77, MCV 83.1, MCH 28.6, MCHC 34.4, RDW 12.6, MPV 7.4, Gran % 76.0 H, Lymphocytes % 11.5 L, Monocytes % 11.9 H, Eosinophils % 0.1, Basophils % 0.5, Absolute Granulocytes 4.8, Absolute Lymphocytes 0.7 L, Absolute Monocytes 0.7 H, Absolute Eosinophils 0, Absolute Basophils 0 Assessment/Plan Assessment: A: 77-year-old female with a past medical history of hypertension, hyperlipidemia, hypothyroidism, Alzheimer's dementia presenting after a presumed fall by family. P: #assumed fall from family from dehydration vs dementia Currently unclear cause EKG: No significant changes to past EKG Troponin <.01 ABG: ph 7.48, pco2 32, po2 93, hco3 23 Knee x-ray reveals soft tissue swelling BUN 25, Cr 0.[address]: Degenerative changes of the C-spine, abd/pelvis/chest ct:1. No evidence of traumatic injury within the chest, abdomen or pelvis on this noncontrast examination. 2) Leiomyomatous uterus. 3) There is some heterogeneous hyperdensity along the left posterolateral bladder wall -- presumably bladder calculi. This incidental finding may be confirmed on a routine follow-up bladder ultrasound examination. -Discussed with case management for further increase home care/short-term rehabilitation -outpatient bladder US for bladder calculi -PT eval -f/u orthostats -case management f/u for str and intermodal customer service placement -cont namenda #htn -contue amlodpipine,lisinopril (in place of home benzapril) #hypothyrodism -cont levothyroxine #hld -cont atorvastatin #mental health -cont escitaloprogram #bone health -cont vit D #full code #dvt prophylaxis -heparin As Ranked By This Provider Problem List: 1. Dehydration 2. Fall Core Measures/Misc (03/23) Acute Coronary Syndrome ACS Diagnosis: No Congestive Heart Failure Congestive Heart Failure Diagnosis No Cerebrovascular Accident CVA/TIA Diagnosis: No VTE (View Protocol) VTE Risk Factors Acute Medical Illness No Mechanical VTE Prophylaxis d/t Other No VTE Pharm Prophylaxis d/t NA PharmProphylax ordered Sepsis (View protocol) Sepsis Present: [facility] 9321: Resident Review Statement Resident Statement: examined this patient, discussed with lab intern, agreed with lab intern, discussed with family Other Findings: Ms. Early is a 77 year old female with past medical history significant for hypertension, hypothyroidism, dementia, urine and stool incontinence, hemorrhoids, presented to ED for evaluation of confusion. Patient lives with her (demented to) in a family house, son lives upstairs. History was obtained from the son and daughter in-low. They mentioned that cousin who used to come over to watch the couples found the patient in bed sleeping and didn't respond to his verbal stimuli at 5 PM. And at that time he decided to call ambulance, by the time the ambulance came, patient was able to communicate verbally however continue to follow asleep. They mentioned that usually during the day couples will sleep and will wake up in night time, they have a visiting nurse Friday, Friday and Friday who helps them with housekeeping and give the medication, the rest of the days son will give medication. They have Meals on Wheels. At baseline patient is able to ambulate independently, use the bathroom by herself however multiple times she may urinate and has bowel movement on the bathroom floor. She is able to feed herself. Daughter mentioned that she found some stool in front of the bedroom door that was well formed and no diarrhea. They deny any recent history of illness, sick contact, change in medication, change in mentation, hallucination. She is confused at baseline, speaks Yakut and may throw some Welsh. They denied any symptoms, no chest pain, shortness of breath, abdominal pain, nausea, vomiting, diarrhea or constipation, dysuria. Patient has a small skin laceration/ bruise on the right side for head and because of that family think that she may fill at any point. Vital signs on admission 98.3, pulse 65, blood pressure 141/63, saturating 98% room air CT head, cervical spine, abdominal pelvis WITHOUT IV contrast IMPRESSION: 1. No evidence of traumatic injury within the chest, abdomen or pelvis on this noncontrast examination. 2. Leiomyomatous uterus. 3. There is some heterogeneous hyperdensity along the left posterolateral bladder wall -- presumably bladder calculi. This incidental finding may be confirmed on a routine follow-up bladder ultrasound examination. Problem list #Progressive dementia #Hypertension #Hypothyroidism Plan Admit to general medical floor Vitals every shift Gentle IV fluid hydration 50 mL normal saline 1 back CBC and BMP in a.m. Case management consultation for placement as family expressed wishes for short versus long-term placement Continue home medication amlodipine 10, lisinopril 20, statin 20, escitalopram 10, Namenda XL 14 equivalent to 5 mg twice a day, vitamin D, Synthroid 0.125 mg daily Avoid medication that may worsen mentation Code full was discussed with the family and needs to be addressed more Diet regular DVT prophylaxis heparin subcutaneous
[2017-08-15 00:35] VITALS: BP 132/78
[2017-08-15 05:28] VITALS: BP 130/78
--- NOTE | 2017-08-15 07:39 | PN- Housestaff ---
Subjective Follow-up For: Mechanical fall Generalized weakness Subjective: No overnight events. Patient remained afebrile overnight. Seen and examined this morning. She denied any chest pain, short of breath, nausea, vomiting or chills, fever, abdominal pain dysuria. Patient is Algerian-speaking and needs enrichment specialist. Patient reported dizziness, weakness and pain in knee joints 11/13. Review of Systems Constitutional: Reports: weakness. EENTM: Reports: see HPI. Cardiovascular: Reports: no symptoms. Respiratory: Reports: no symptoms. Gastrointestinal: Reports: no symptoms. Genitourinary: Reports: no symptoms. Musculoskeletal: Reports: joint pain. Neurological/Psychological: Reports: see HPI. Objective Last 24 Hrs of Vital Signs/I&O Vital Signs Date Time Temp Pulse Resp B/P B/P Pulse O2 O2 Flow FiO2 Mean Ox Delivery Rate 08/15 1030 Room Air 08/15 0916 Room Air 08/15 0900 Room Air 08/15 0528 98.1 63 20 130/78 98 Room Air 08/15 0214 132/78 08/15 0035 98.2 53 20 132/78 94 Room Air 08/15 0019 Room Air 08/14 2332 97.0 60 20 160/76 98 Room Air 08/14 2130 98.6 67 20 116/58 97 08/14 2033 Room Air 08/14 1857 98.3 65 18 141/63 98 Room Air Intake & Output 08/15 1600 08/15 0800 08/15 0000 Intake Total 240 0 Output Total 500 175 Balance -260 -175 Intake, Oral 240 0 Output, Urine 500 175 Patient 99 lb 15.99 oz 99 lb 15.99 oz Weight Weight Bed scale Estimated Measurement Method Physical Exam General Appearance: Alert, Oriented X3, Cooperative Skin Temp/Moisture Exam: Warm/Dry Sepsis Skin Exam (color): Normal for Ethnicity HEENT: Atraumatic, PERRLA, EOMI Neck: Supple Cardiovascular: Normal S1, Normal S2 Lungs: Clear to Auscultation Abdomen: Soft, No Tenderness Neurological: Normal Speech, Strength at 5/5 X4 Ext, Normal Tone Extremities: No Edema Assessment/Plan Assessment: 77 YO F with a PMH of HTN, hyperlipidemia, hypothyroidism, Alzheimer's dementia presenting after a presumed fall. The history is given by the patient's son and daughter. Patient was admitted on general medicine floor after a fall. Mechanical fall: -PT eval -Patient needs short-term rehabilitation. -We will check orthostatic vitals. -Encourage oral intake. History of dementia: -We will continue memantine History of hypertension: -We will continue her home medications History of hypothyroidism: -We will continue his levothyroxine History of hyperlipidemia: -We will continue Lipitor. History of depression/anxiety: -We will continue escitalopram. DVT prophylaxis: Mechanical and subcutaneous heparin CODE STATUS: Full code Problem List: 1. Fall Pain Ratin Pain Location: knees Pain Goal: Pain 4 or less Pain Plan: pain pathway Tomorrow's Labs & Rationales: cbc/bep
--- NOTE | 2017-08-15 08:53 | Discharge Summary ---
Visit Information Visit Dates Admission Date: 08/14/17 Discharge Date: 08/15/17 Hospital Course Course Attending Physician: Babar Puente MD Primary Care Physician: Cindi ROBLES,[facility] Course: 77 year old female with PMH significant for HTN, HLD, dementia, urine & stool incontinence, and hemorrhoids, who presented to ED for evaluation of confusion and questionable fall. The patient and her is also demented lives with her son who checks on them frequently every day, the patient had the visiting nurse on // who helps the son with the medications. On the day of admission the patient was found sleeping on bed not responsive to verbal stimuli, the son called 911 and by the time they arrived she was arousable but lethargic and sleepy. There was a new small skin laceration/ bruise on the right side for head , for that reason the family thinks the patient may has had unwitnessed fall. At baseline patient is able to ambulate independently and is able to feed herself. The patient is Omani speaker. However during the previously mentioned episode a well-formed stool was found outside the door of the bathroom. The son denies any history of recent illness, sick contacts, change in medication, change in behavioral, or any hallucination. Patient was admitted to general medicine floor, knee x-ray, head CT, chest CT, cervical spine CT, and abdominal pelvis CT did not show any signs of acute pathology or fractures. The patient was continued on all home medications. Urine infection was ruled out with urinalysis. No anemia or leukocytosis and CBCs. Kidney function and normal function was normal. She had mild elevated creatinine kinase most likely from the fall. BUN/creatinine ratio was mild elevated implicate dehydration for which the patient received IV fluid. The patient was evaluated by physical therapy who recommended short-term rehabilitation. Allergies: Coded Allergies: No Known Allergies (10/16/16) Disposition Summary Disposition Principal Diagnosis: Alter mental status secondary to dehydration Additional Diagnosis: Fall without fractures Discharge Disposition: SNF Discharge Instructions General Discharge Information Code Status: Full Code Patient's Diet: Regular diet Patient's Activity: As tolerated Follow-Up Instructions/Appts: Please primary care doctor within 1-2 week Medications at Discharge Discharge Medications: Continue taking these medications: Amlodipine Besylate/Benazepril (Amlodipine-Benazepril 10-20 MG) 10 MG-20 MG CAPSULE 1 Capsule ORAL DAILY Qty = 90 Comments: NOT GIVEN, NORVASC 10 MG GIVEN 08/15/17 AT 1020 AM Escitalopram Oxalate (Escitalopram Oxalate) 10 MG TABLET 1 Tablet ORAL DAILY Qty = 30 Comments: Last Taken: 08/15/17 Time: 1020 AM Memantine HCl (Namenda XR) 14 MG CAP.SPR.24 1 Capsule ORAL DAILY Qty = 90 Comments: Last Taken: 08/15/17 Time: 1020 AM Atorvastatin Calcium (Atorvastatin Calcium) 20 MG TABLET 1 Tablet ORAL DAILY Qty = 90 Comments: Last Taken: 08/15/17 Time: 1020 AM Levothyroxine Sodium (Levothyroxine Sodium) 125 MCG TABLET 1 Tablet ORAL DAILY Qty = 90 Comments: Last Taken: 08/15/17 Time: 630 AM Alendronate Sodium (Fosamax) 70 MG TABLET 1 Tablet ORAL EVERY FRIDAY Instructions: in the morning, at least 30 minutes before the first food, beverage, or medication of the day Comments: NOT GIVEN IN HOSPITAL Cholecalciferol (Vitamin D3) (Vitamin D) 1,000 UNIT TABLET 1 Tablet ORAL DAILY Comments: Last Taken: 08/15/17 Time: 1020 AM Fish Oil/Borage/Flax/Om3,6,9#1 ([place] 3-6-9 1,200 MG Softgel) (Unknown Strength) CAPSULE Unknown Dose ORAL DAILY Comments: NOT GIVEN IN HOSPITAL Copies To: Babar Puente MD
[2017-08-15 09:30] LABS: ABSOLUTE BASOPHIL COUNT 0 /CUMM (0.0-0.2); ABSOLUTE EOSINOPHIL COUNT 0 /CUMM (0.0-0.7); ABSOLUTE GRANULOCYTE CT 2.4 /CUMM (1.4-6.5); ABSOLUTE MONOCYTE COUNT 0.5 /CUMM (0.10-0.60); BASOPHIL % 0.3 % (0.0-2.0); EOSINOPHIL % 0 % (0-5); GRANULOCYTE % 61.2 % (42.2-75.2); HEMATOCRIT 36.1 % (37-47); MEAN CORPUSCULAR HGB 28.6 PG (27.0-31.0); MEAN CORPUSCULAR HGB CONC 33.9 G/DL (33.0-37.0); MEAN CORPUSCULAR VOLUME 84.3 FL (81.0-99.0); PLATELET COUNT 155 /CUMM (130-400); RBC DISTRIBUTION WIDTH 13.1 % (11.5-14.5); RED BLOOD CELL CT 4.29 /CUMM (4.20-5.40); WHITE BLOOD CELL COUNT 3.9 /CUMM (4.8-10.8)
--- NOTE | 2017-08-15 10:57 | PN- Att Addend ---
Attending Addendum Attending Brief Note 77-year-old female who lives at home also with the demented , she also has history of Alzheimer's dementia. Has been difficult at home. Apparently she had a mechanical fall and was brought into the emergency room had all kind of x-rays no acute fractures. Her BUN was very slightly elevated, she got some IV fluids. This morning she seems at baseline but still a little weak. Arrangements will be made for the patient to go to short-term rehabilitation 24 TOTALS 08/15 0000 08/14 0000 Intake Total 0 Output Total 175 Balance -175 Intake, Oral 0 Output, Urine 175 Patient 99 lb 15.99 oz Weight Weight Estimated Measurement Method Current Medications Sig/Nicki Start time Last Medication Dose Route Stop Time Status Admin Acetaminophen 650 MG Q6P PRN 08/14 2330 AC PO Amlodipine Besylate 10 MG DAILY 08/15 1000 AC 08/15 PO 1022 Atorvastatin Calcium 20 MG DAILY 08/15 1000 AC 08/15 PO 1022 Cholecalciferol 1,000 IU DAILY 08/15 1000 AC 08/15 PO 1022 Enoxaparin Sodium 40 MG DAILY 08/15 1000 CAN SC Escitalopram Oxalate 10 MG DAILY 08/15 1000 AC 08/15 PO 1022 Levothyroxine Sodium 0.125 MG DAILY AC 08/15 0700 AC 08/15 PO 0630 Lisinopril 20 MG DAILY 08/14 2345 AC 08/15 PO 1022 Memantine 5 MG BID 08/14 2346 AC 08/15 PO 1022 Memantine 5 MG BID 08/14 2339 CAN PO Sodium Chloride 1,000 ML .Q20H 08/14 2330 AC 08/15 IV 08/15 1929 0216 Sodium Chloride 1,000 ML BOLUS ONE 08/14 2130 DC 08/14 IV 08/14 2229 2148 Laboratory Tests 08/15/17 0745: Anion Gap 13, Estimated GFR > 60, BUN/Creatinine Ratio 32.0 H, TSH Pending, Free T4 Pending, CBC w Diff NO MAN DIFF REQ, RBC 4.29, MCV 84.3, MCH 28.6, MCHC 33.9, RDW 13.1, MPV 8.0, Gran % 61.2, Lymphocytes % 25.8, Monocytes % 12.7 H, Eosinophils % 0, Basophils % 0.3, Absolute Granulocytes 2.4, Absolute Lymphocytes 1.0 L, Absolute Monocytes 0.5, Absolute Eosinophils 0, Absolute Basophils 0 08/14/172119: pH 7.48 H, pCO2 32 L, pO2 93, HCO3 23, ABG O2 Sat (Measured) 97.0, Carboxyhemoglobin 0.2 L, O2 Concentration % RA, Phlebotomy Draw Site RIGHT RADIAL 08/14/171939: Urinalysis LIGHT H, Urine Color YEL, Urine Clarity HAZY H, Urine pH 6.5, Ur Specific [place] 1.020, Urine Protein 30 H, Urine Ketones 15 H, Urine Nitrite NEG, Urine Bilirubin NEG, Urine Urobilinogen 0.2, Ur Leukocyte Esterase NEG, Ur Microscopic SEDIMENT EXAMINED, Urine WBC 1-3 H, Urine Hemoglobin NEG, Urine Glucose NEG 08/14/171910: Anion Gap 12, Estimated GFR > 60, BUN/Creatinine Ratio 31.3 H, Glucose 107 H, Lactic Acid 0.9, Calcium 9.8, Total Bilirubin 0.6, Direct Bilirubin 0.2, AST 46 H, ALT 52, Alkaline Phosphatase 69, Creatine Kinase 495 H, Troponin I < 0.01, Total Protein 6.9, Albumin 4.3, Amylase 57, Lipase 81, CBC w Diff NO MAN DIFF REQ, RBC 4.77, MCV 83.1, MCH 28.6, MCHC 34.4, RDW 12.6, MPV 7.4, Gran % 76.0 H, Lymphocytes % 11.5 L, Monocytes % 11.9 H, Eosinophils % 0.1, Basophils % 0.5, Absolute Granulocytes 4.8, Absolute Lymphocytes 0.7 L, Absolute Monocytes 0.7 H, Absolute Eosinophils 0, Absolute Basophils 0 Vital Signs Date Time Temp Pulse Resp B/P B/P Pulse O2 O2 Flow FiO2 Mean Ox Delivery Rate 08/15 1030 Room Air 08/15 1022 68 134/70 08/15 1022 68 134/70 08/15 0916 Room Air 08/15 0900 Room Air 08/15 0528 98.1 63 20 130/78 98 Room Air 08/15 0214 132/78 08/15 0035 98.2 53 20 132/78 94 Room Air 08/15 0019 Room Air 08/14 2332 97.0 60 20 160/76 98 Room Air 08/14 2130 98.6 67 20 116/58 97 08/143 Room Air 08/14 1857 98.3 65 18 141/63 98 Room Air
--- NOTE | 2017-08-15 11:04 | Patient Discharge Instructions ---
Discharge Instructions General Discharge Information You were seen/treated for: Mechanical fall Generalized weakness Watch for these problems: Decrease in appetite, nausea, vomiting, abdominal pain, lightheadedness, dizziness and chest pain. If she experiences any of these symptoms please come to ED or call your primary care physician. Special Instructions: Follow-up with your primary care physician in one week. Diet Recommended Diet: Regular Activity Activity Self Limited: Yes Acute Coronary Syndrome Inclusion Criteria At DC or during hospital stay patient has or had the following: ACS DIAGNOSIS No Discharge Core Measures Meds if any: Prescribed or Continued at Discharge Meds if any: NOT Prescribed or Continued at Discharge Congestive Heart Failure Inclusion Criteria At DC or during hospital stay patient has or had the following: CHF DIAGNOSIS No Discharge Core Measures Meds if any: Prescribed or Continued at Discharge Meds if any: NOT Prescribed or Continued at Discharge Cerebrovascular accident Inclusion Criteria At DC or during hospital stay patient has or had the following: CVA/TIA Diagnosis No Discharge Core Measures Meds if any: Prescribed or Continued at Discharge Meds if any: NOT Prescribed or Continued at Discharge Venous thromboembolism Inclusion Criteria VTE Diagnosis No VTE Type NONE VTE Confirmed by (Test) NONE Discharge Core Measures - Per Current guidelines, there needs to be overlap - treatment for the first 5 days of Warfarin therapy. - If discharged on Warfarin prior to 5 days of - overlap therapy, the patient will need to be - assessed for post discharge needs including - *Post discharge parental anticoagulation - *Warfarin and/or parental anticoagulation education - *Follow up date to check INR post discharge At least 5 days overlap therapy as Inpatient No Meds if any: Prescribed or Continued at Discharge Note: Overlap Therapy is Warfarin and Anticoagulant Meds if any: NOT Prescribed or Continued at Discharge
[2017-08-15 13:58] VITALS: BP 134/70
[2017-08-15 14:35] VITALS: BP 102/60
== END 2017-08-15 16:35 | DRG 641 ==
LOC: ERH 18:46 → 2NB 22:14 → ERHI 22:14 → ENRESERV 23:01 → ERHI 23:51 → 2NB 23:51 → ENPENDDIS 08-15 13:32 → 2NB 08-15 16:35
PROVIDERS: Pediatrics; Student in an Organized Health Care Education/Training Program
DX: E86.0 Dehydration (principal); G30.9 Alzheimer's disease, unspecified; E03.9 Hypothyroidism, unspecified; F02.80 Dementia in other diseases classified elsewhere, unspecified severity, without behavioral disturbance, psychotic disturbance, mood disturbance, and anxiety; E78.5 Hyperlipidemia, unspecified; I10 Essential (primary) hypertension
CPT/HCPCS: 2NBSP; 36415; 73562-LT; 73562-RT; 74176; 81001; 82436; 93005; 93010; 97116-GO; 97161-GP; 97530-GO

== ENCOUNTER 2018-02-18 14:05 | Inpatient (IN) | payer OTHER ==
[~2018-02-18] VITALS: Ht 152.4 cm; Wt 46.8 kg
[~2018-02-18 14:05] MED LIST changes: +AMLODIPINE-BEN1 EAC4 PO; +ATORVASTATIN CA20 M1 PO; +FOSAMAX70 M1 PO; +LEVOTHYROXINE125 MCG PO; +NAMENDA XR14 M1 PO; +OMEGA 3-6-9 11200 MG PO; +VITAMIN D1000 UNIT PO
--- NOTE | 2018-02-18 14:15 | ED GENERAL ADULT ---
History of Present Illness General Chief Complaint: Facial or Head Injury Stated Complaint: FOUND ON FLOOR, PRESUMED UNWITNESSED FALL Source: patient, EMS Exam Limitations: unable to give history Allergies Coded Allergies: No Known Allergies (02/18/18) Reconcile Medications Amlodipine Besylate/Benazepril (Amlodipine-Benazepril 10-20 MG) 10 MG-20 MG CAPSULE 1 CAP PO DAILY BP (Reported) Atorvastatin Calcium 20 MG TABLET 1 TAB PO DAILY CHOLESTEROL (Reported) Cholecalciferol (Vitamin D3) (Vitamin D) 1,000 UNIT TABLET 1 TAB PO DAILY SUPPLEMENT (Reported) Fish Oil/Borage/Flax/Om3,6,9#1 ([place] 3-6-9 1,200 MG Softgel) (Unknown Strength) CAPSULE (Unknown Dose) PO DAILY SUPPLEMENT (Reported) Levothyroxine Sodium 125 MCG TABLET 1 TAB PO DAILY THYROID (Reported) Memantine HCl (Namenda XR) 14 MG CAP.SPR.24 1 CAP PO DAILY MEMORY (Reported) Triage Nurses Notes Reviewed? yes Unable To Obtain Hx Due To: patient confusion Onset: Abrupt Duration: hour(s): Timing: single episode today HPI: 77 year old female presents to the Emergency Department after being found by her son on the kitchen floor. This fall was unwitnessed. The Pt is a poor historian due to dementia. She arrive with C-spine collar in place. (Haja Azar DO) Vital Signs & Intake/Output Vital Signs & Intake/Output Vital Signs Date Time Temp Pulse Resp B/P B/P Pulse O2 O2 Flow FiO2 Mean Ox Delivery Rate 02/19 2120 98.9 60 20 178/74 100 Room Air 02/18 1921 99.0 68 20 142/60 97 Room Air 02/18 1743 Room Air 02/18 1425 99 Room Air 02/18 1407 99.3 66 20 123/90 98 Room Air (Christopher Dimas MD) Past History Medical History Any Pertinent Medical History? 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 No (Haja Azar DO) Review of Systems Review of Systems Constitutional: Reports: see HPI. EENTM: Reports: no symptoms. Respiratory: Reports: no symptoms. Cardiovascular: Reports: no symptoms. GI: Reports: no symptoms. Genitourinary: Reports: no symptoms. Musculoskeletal: Reports: no symptoms. Skin: Reports: no symptoms. Neurological/Psychological: Reports: no symptoms. Hematologic/Endocrine: Reports: no symptoms. Immunologic/Allergic: Reports: no symptoms. All Other Systems: Reviewed and Negative (Haja Azar DO) Physical Exam Physical Exam General Appearance: alert, awake, anxious, moderate distress Head: evidence of injury, ecchymosis Eyes: Bilateral: normal appearance, PERRL, EOMI. Ears, Nose, Throat: normal ENT inspection Neck: limited range of motion Respiratory: lungs clear Cardiovascular: regular rate/rhythm Peripheral Pulses: 4+ radial (R), 4+ radial (L) Gastrointestinal: soft, non-tender Back: normal inspection Extremities: normal inspection Neurologic/Psych: awake, alert Skin: intact, ecchymosis Core Measures ACS in differential dx? No CVA/TIA Diagnosis: No Sepsis Present: No Sepsis Focused Exam Completed? No (Haja Azar DO) Progress Differential Diagnoses I considered the following diagnoses in my evaluation of the patient: Initial ED EKG: Pending (Haja Azar DO) Differential Diagnoses I considered the following diagnoses in my evaluation of the patient: Head trauma electrolyte abnormality UTI Plan of Care: Orders Procedure Date/time Status Regular Diet 02/19 B Active CBC WITHOUT DIFFERENTIAL 02/19 06 Active BASIC ELECTROLYTES PLUS BUN&CR 02/19 06 Active PT Evaluate & Treat 02/18 2127 Active Pathway - chart 02/18 2127 Active House Staff 02/18 2127 Active Patient Data 02/18 2127 Active Code Status 02/18 2127 Active Patient Data 02/18 2035 Active Add-on Test (ER Only) 02/19 2020 Active OXYGEN SETUP (GEN) 02/18 2019 Active Saline Lock 02/18 2019 Active Admit to inpatient 02/18 2019 Active Vital Signs 02/18 2019 Active Activity/Ambulation 02/18 2019 Active Code Status 02/18 2019 Complete PT Evaluate & Treat 02/18 1739 Active CASE MANAGEMENT CONSULT 02/18 1739 Active TROPONIN LEVEL 02/18 1508 Complete COMPREHENSIVE METABOLIC PANEL 02/18 1508 Complete CBC WITHOUT DIFFERENTIAL 02/18 1508 Complete EKG 02/18 1508 Active CULTURE,URINE 02/18 1437 Active URINALYSIS 02/18 1437 Complete EKG 02/18 1437 Active Straight Cath 02/18 1436 Active VTE Mechanical Prophylaxis 02/18 UNK Active Vital Signs 02/18 UNK Active Activity/Ambulation 02/18 UNK Active Current Medications Sig/Nicki Start time Last Medication Dose Stop Time Status Admin Amlodipine Besylate 10 MG DAILY 02/19 900 UNVr (Norvasc) Atorvastatin Calcium 20 MG DAILY 02/19 900 UNVr (Lipitor) Ceftriaxone Sodium 1,000 MG DAILY 02/19 900 UNVr (Rocephin) Cholecalciferol 1,000 IU DAILY 02/19 900 UNVr (Vitamin D) Levothyroxine Sodium 0.125 MG DAILY 02/19 900 UNVr (Synthroid) Lisinopril 20 MG DAILY 02/19 900 UNVr (Prinivil) Memantine 14 MG DAILY 02/19 900 UNVr (Namenda) Heparin Sodium 5,000 UNIT Q8 02/18 2200 UNVr (Porcine) Acetaminophen 650 MG Q6P PRN 02/18 2130 UNVr (Tylenol) Acetaminophen 1,000 MG Q6P PRN 02/18 2130 UNVr (Ofirmev) Sodium Chloride 1,000 ML ONCE ONE 02/18 1515 AC 02/18 (Normal Saline 0.9%) 02/18 2154 1607 Laboratory Tests 02/18/18 1600: Anion Gap 5, Estimated GFR > 60, BUN/Creatinine Ratio 30.0 H, Glucose 107 H, Calcium 9.8, Total Bilirubin 0.4, AST 42 H, ALT 43, Alkaline Phosphatase 76, Troponin I < 0.01, Total Protein 6.7, Albumin 3.8, Globulin 2.9, Albumin/ Globulin Ratio 1.3, CBC w Diff NO MAN DIFF REQ, RBC 4.44, MCV 85.6, MCH 28.9, MCHC 33.7, RDW 13.4, MPV 6.8 L, Gran % 80.8 H, Lymphocytes % 12.1 L, Monocytes % 6.9, Eosinophils % 0, Basophils % 0.2, Absolute Granulocytes 7.8 H, Absolute Lymphocytes 1.2, Absolute Monocytes 0.7 H, Absolute Eosinophils 0, Absolute Basophils 0 02/18/18 1434: Urine Color YEL, Urine Clarity HAZY H, Urine pH 6.5, Ur Specific [place] 1.025, Urine Protein TRACE H, Urine Ketones 15 H, Urine Nitrite POS H, Urine Bilirubin NEG, Urine Urobilinogen 0.2, Ur Leukocyte Esterase SMALL H, Ur Microscopic SEDIMENT EXAMINED, Urine RBC RARE, Urine WBC 15-25 H, Urine Bacteria MANY H, Urine Mucus MOD H, Urine Hemoglobin TRACE-INTACT, Urine Glucose NEG Microbiology 02/18 1437 URINE ROUT: Urine Culture - RECD Initial ED EKG: NSR, Pending, pvcs Prior EKG: unchanged Rhythm Strip: normal sinus rhythm (Christopher Dimas MD) Departure Departure Condition: Stable Referrals: Babar Puente MD (PCP/Family) Departure Forms: Customer Survey General Discharge Information Comments The patient was unable to ambulate with the assistance of the nursing staff. She is unsafe for discharge home. CT scan of the head and neck were unremarkable. She was signed out to Dr. Dimas at 7 PM. Admission Note Documentation of Exam: Documentation of any treatments & extenuating circumstances including Concerns Regarding Discharge (functional status, medication knowledge or non-compliance, living conditions, etc.) that warrant an admission rather than observation: (Haja Azar DO) Departure Time of Disposition: 1999 Disposition: OTHER PYSCH Clinical Impression Primary Impression: UTI (urinary tract infection) Secondary Impressions: Altered mental status, Head injury due to trauma Admission Note Spoke With: Babar Puente MD Documentation of Exam: Documentation of any treatments & extenuating circumstances including Concerns Regarding Discharge (functional status, medication knowledge or non-compliance, living conditions, etc.) that warrant an admission rather than observation: IV antibiotics follow cultures physical therapy medication adjustment ensure safety continuing care discharge planning (Christopher Dimas MD) Critical Care Note Critical Care Note Critical Care Time: non-applicable (Haja Azar DO)
--- NOTE | 2018-02-18 15:52 | CT SCAN REPORT ---
CT HEAD WITHOUT IV CONTRAST CT CERVICAL SPINE WITHOUT IV CONTRAST INDICATION: Fall. COMPARISON: Head CT August 14, 2017. TECHNIQUE: Multidetector CT acquisitions of the head and cervical spine were obtained without IV contrast. Multiplanar reformats were acquired and utilized for image interpretation. FINDINGS: HEAD: Atherosclerotic calcification throughout the intracranial arterial vasculature. There is no intracranial hemorrhage, hydrocephalus, extra-axial surface collection, midline shift, or other herniation pattern. [place] to white matter differentiation is diffusely maintained without evidence of an evolved acute territorial infarct. The basilar cisterns are preserved. There is mild left periorbital soft tissue swelling. No acute osseous abnormality. The paranasal sinuses and the mastoid air cells are well-aerated. CERVICAL SPINE: Reversal of the cervical lordosis. There is moderate to severe disc volume loss at C5-C6 and there is moderate disc volume loss at C6-C7 with endplate osteophytes at both of these levels. There is no acute fracture and there is no acute subluxation. The craniocervical and atlantoaxial articulations are normal. There is no prevertebral soft tissue swelling. No significant soft tissue abnormality within the neck. The visualized lung apices are clear. IMPRESSION: 1. No acute intracranial abnormality. There is mild left periorbital soft tissue swelling. 2. No acute osseous abnormality within the cervical spine. Moderate to severe spondylosis at C5-C6 and C6-C7.
[2018-02-18 16:18] LABS: ABSOLUTE BASOPHIL COUNT 0 /CUMM (0.0-0.2); ABSOLUTE EOSINOPHIL COUNT 0 /CUMM (0.0-0.7); ABSOLUTE GRANULOCYTE CT 7.8 /CUMM (1.4-6.5); ABSOLUTE LYMPH COUNT 1.2 /CUMM (1.2-3.4); ABSOLUTE MONOCYTE COUNT 0.7 /CUMM (0.10-0.60); BASOPHIL % 0.2 % (0.0-2.0); EOSINOPHIL % 0 % (0-5); GRANULOCYTE % 80.8 % (42.2-75.2); MEAN CORPUSCULAR HGB 28.9 PG (27.0-31.0); MEAN CORPUSCULAR HGB CONC 33.7 G/DL (33.0-37.0); MEAN CORPUSCULAR VOLUME 85.6 FL (81.0-99.0); MEAN PLATELET VOLUME 6.8 FL (7.4-10.4); PLATELET COUNT 263 /CUMM (130-400); RBC DISTRIBUTION WIDTH 13.4 % (11.5-14.5); RED BLOOD CELL CT 4.44 /CUMM (4.20-5.40); WHITE BLOOD CELL COUNT 9.6 /CUMM (4.8-10.8)
--- NOTE | 2018-02-18 20:51 | Admission Certification ---
Admission Certification Certification Statement - As attending physician, I certify that at the time of - admission, based on clinical presentation, severity of - symptoms, need for further diagnostic testing and - therapeutic interventions, and risk of adverse outcomes - without in-hospital treatment, in my clinical assessment, - this patient requires an acute hospital stay for a minimum - of two nights or longer. I have also considered psychsocial - factors such as support system, advanced age, financial - issues, cognitive issues, and failed out-patient treatments, - past re-admission history, safety of patient, and lack of - compliance as applicable. Specific rationale supporting this admission is: weakness unwitnessed fall low grade fever and a dirty urine UTI.
--- NOTE | 2018-02-18 20:57 | PN- Att Addend ---
Attending Addendum Attending Brief Note 77 year old female with underlying dementia lives at home with and supervised by son ,was found on the kitchen floor by son brought to the ER by ambulance has some swelling over the right eye, responds when caleed, has a low grade fever, a dirty urine WBC normal. CT of the head showed no acute abnormality, some periorbital soft tisuue swelling. C spine no acute changes. Patient will be pancultured start IV antibiotic follow labs, when stable get a PT evaluation. case discussed with resident. Current Medications Sig/Nciki Start time Last Medication Dose Route Stop Time Status Admin Ceftriaxone Sodium 0 .STK-MED ONE 02/18 2034 DC .ROUTE Ceftriaxone Sodium 1,000 MG ONCE ONE 02/18 2030 UNVr 02/18 IV 02/18 Sodium Chloride 1,000 ML ONCE ONE 02/18 151 AC 02/18 IV 02/18 2154 1607 Laboratory Tests 02/18/18 1600: Anion Gap 5, Estimated GFR > 60, BUN/Creatinine Ratio 30.0 H, Glucose 107 H, Calcium 9.8, Total Bilirubin 0.4, AST 42 H, ALT 43, Alkaline Phosphatase 76, Troponin I < 0.01, Total Protein 6.7, Albumin 3.8, Globulin 2.9, Albumin/ Globulin Ratio 1.3, CBC w Diff NO MAN DIFF REQ, RBC 4.44, MCV 85.6, MCH 28.9, MCHC 33.7, RDW 13.4, MPV 6.8 L, Gran % 80.8 H, Lymphocytes % 12.1 L, Monocytes % 6.9, Eosinophils % 0, Basophils % 0.2, Absolute Granulocytes 7.8 H, Absolute Lymphocytes 1.2, Absolute Monocytes 0.7 H, Absolute Eosinophils 0, Absolute Basophils 0 02/18/18 1434: Urine Color YEL, Urine Clarity HAZY H, Urine pH 6.5, Ur Specific [place] 1.025, Urine Protein TRACE H, Urine Ketones 15 H, Urine Nitrite POS H, Urine Bilirubin NEG, Urine Urobilinogen 0.2, Ur Leukocyte Esterase SMALL H, Ur Microscopic SEDIMENT EXAMINED, Urine RBC RARE, Urine WBC 15-25 H, Urine Bacteria MANY H, Urine Mucus MOD H, Urine Hemoglobin TRACE-INTACT, Urine Glucose NEG Vital Signs Date Time Temp Pulse Resp B/P B/P Pulse O2 O2 Flow FiO2 Mean Ox Delivery Rate 08/15 1921 99.0 68 20 142/60 97 Room Air 02/18 1743 Room Air 02/18 1425 99 Room Air 02/18 1407 99.3 66 20 123/90 98 Room Air Intake & Output 02/18 1600 Intake Total Output Total Balance Patient 140 lb Weight Weight Estimated Measurement Method
--- NOTE | 2018-02-18 21:06 | History & Physical ---
Octavio Milesley 02/18/18 2105: General Information and HPI MD Statement: I have seen and personally examined DASIA EARLY and documented this H&P. The patient is a 77 year old F who presented with a patient stated chief complaint of []. Source of Information: family Exam Limitations: unable to give history, dementia History of Present Illness: 77 year old female with PMH Dementia, HTN, HLD, Incontinence BIB EMS s/p being found down by son in kitchen for unknown amount of time. Per one of her son's who is at bedside, patient normally ambulates with a walker but often forgets to use it 2/2 dementia. She has caregivers most days from 12pm-8pm and a different son takes care of her the rest of the time. Patient has h/o falls with most recent being 3 days ago. Many of these falls are unwitnessed. The falls are believed to be mechanical as the patient has been observed reaching down for items and ambulating without her walker. Her last admission for a fall was August 2017 and she was sent to [facility] post hospitalization. Per patient's son, they went through the home and tried to reduce fall risk however patient continues to have falls. To the son's knowledge the patient has not had any recent signs of illness or change in mental status. She was doing well until this morning. She was found down at 12:30pm. She was last seen awake and in good health at 10am this morning. She has been tolerating her usual diet and no fevers. Patient was immediately responsive when found and LOC is unknown. Allergies/Medications Allergies: Coded Allergies: No Known Allergies (02/18/18) Past History Travel History Traveled to [place] past 21 day No Medical History Neurological: Alzheimer's disease, dementia EENT: NONE Cardiovascular: hypertension, hyperlipidemia Respiratory: NONE Gastrointestinal: NONE Hepatic: NONE Renal: NONE Musculoskeletal: ?ARM FX Psychiatric: NONE Endocrine: NONE Blood Disorders: NONE Cancer(s): NONE HATCHERY MAN/Reproductive: NONE History of MRSA: No History of VRE: No History of CDIFF: No Influenza Vaccine: 05/07/17 Surgical History Surgical History: non-contributory Past Family/Social History Psychosocial History ETOH Use: denies use Illicit Drug Use: denies illicit drug use Review of Systems Review of Systems Constitutional: Reports: no symptoms. EENTM: Reports: no symptoms. Cardiovascular: Reports: no symptoms. Respiratory: Reports: no symptoms. GI: Reports: no symptoms. Genitourinary: Reports: no symptoms. Musculoskeletal: Reports: no symptoms. Skin: Reports: no symptoms. Neurological/Psychological: Reports: no symptoms. Exam & Diagnostic Data Last 24 Hrs of Vital Signs/I&O Vital Signs Date Time Temp Pulse Resp B/P B/P Pulse O2 O2 Flow FiO2 Mean Ox Delivery Rate 02/18 2344 98.7 60 20 122/60 100 Room Air 02/18 2221 98.8 74 18 175/79 98 Room Air 02/18 2120 98.9 60 20 178/74 100 Room Air 02/18 1921 99.0 68 20 142/60 97 Room Air 02/18 1743 Room Air 02/18 1425 99 Room Air 02/18 1407 99.3 66 20 123/90 98 Room Air Intake & Output 02/19 0800 02/19 0000 02/18 1600 Intake Total 200 Output Total Balance 200 Intake, Oral 200 Patient 103 lb 140 lb Weight Weight Bed scale Estimated Measurement Method Physical Exam General Appearance Alert, unable to follow commands, communicates in vietnamese and czech Skin ecchymosis to BUE/BLE Skin Temp/Moisture Exam: Cool/Dry HEENT left eye with periorbital swelling and redness. Non tender to palpation. Patient unable to open eyes. Crusting and discharge noted bilateral eyes Neck Supple Cardiovascular Regular Rate, Normal S1, Normal S2 Lungs unable to assess 2/2 poor inspiration and unable to follow commands. No obvious wheezing Abdomen Normal Bowel Sounds, Soft, No Tenderness Extremities Normal Pulses, No Tenderness/Swelling Assessment/Plan Assessment: 77 year old female with PMH Dementia, HTN, HLD, Incontinence BIB EMS s/p being found down by son in kitchen for unknown amount of time. Patient with history of falls and most recent 3 days ago. Patient found to have UTI on ED workup and dehydration with BUN 18. Patient to be admitted to the general medicine floor for treament of the following: Problem List: 1. Unwitnessed fall with unknown LOC or head trauma 2. UTI 3. Dehydration 4. Left periorbital swelling/redness Admission Data: VS T99.3 P66 RR20 BP123/90 Sat 98%RA Labs: WBC 9.6 H/H 12.8/38.0 Plt 263; BUN 18/ Cr 0.6; AST 42 CT Head/C-spine 1. No acute intracranial abnormality. There is mild left periorbital soft tissue swelling. 2. No acute osseous abnormality within the cervical spine. Moderate to severe spondylosis at C5-C6 and C6-C7. CT neck #Unwitnessed fall-possibly mechanical vs infectious from UTI ([facility]) -Will have PT eval #UTI -IV Ceftriaxone -Urine culture/sensitivities -Tailor abx as appropriate for sensitivities #Dehydration -IVF 1L in ED -Monitor electrolytes; BUN #Left periorbital swelling/redness-possibly from fall vs early cellulitic infection -currently non tender though patient exam not reliable in setting of dementia -low threshold for cellulitic infection; continue to monitor -will observe off abx at this time -consider hygiene for bilateral eye crusting DVT prophylaxis: Heparin 5000units subcu/ALPS Code status: FC As Ranked By This Provider Problem List: 1. Fall 2. Dementia 3. UTI (urinary tract infection) Core Measures/Misc (03/23) Acute Coronary Syndrome ACS Diagnosis: No Congestive Heart Failure Congestive Heart Failure Diagnosis No Cerebrovascular Accident CVA/TIA Diagnosis: No VTE (View Protocol) VTE Risk Factors Acute Medical Illness No Mechanical VTE Prophylaxis d/t N/A MechProphylax Ordered No VTE Pharm Prophylaxis d/t NA PharmProphylax ordered Sepsis (View protocol) Sepsis Present: No If YES complete Sepsis Event Note If YES complete Sepsis Event Note Igor Breen 02/19/18 0122: General Information and HPI Allergies/Medications Home Med list Amlodipine Besylate/Benazepril (Amlodipine-Benazepril 10-20 MG) 10 MG-20 MG CAPSULE 1 CAP PO DAILY BP (Reported) Atorvastatin Calcium 20 MG TABLET 1 TAB PO DAILY CHOLESTEROL (Reported) Cholecalciferol (Vitamin D3) (Vitamin D) 1,000 UNIT TABLET 1 TAB PO DAILY SUPPLEMENT (Reported) Fish Oil/Borage/Flax/Om3,6,9#1 (Central 3-6-9 1,200 MG Softgel) (Unknown Strength) CAPSULE (Unknown Dose) PO DAILY SUPPLEMENT (Reported) Levothyroxine Sodium 125 MCG TABLET 1 TAB PO DAILY THYROID (Reported) Memantine HCl (Namenda XR) 14 MG CAP.SPR.24 1 CAP PO DAILY MEMORY (Reported) Core Measures/Misc (03/23) Sepsis (View protocol) If YES complete Sepsis Event Note If YES complete Sepsis Event Note Resident Review Statement Resident Statement: examined this patient, discussed with programming internship, agreed with programming internship, discussed with family, reviewed EMR data (avail), discussed with nursing , discussed with case mgmt, reviewed images, amended to note Other Findings: This is a 77-year-old female with past medical history significant for severe dementia, hypertension, hyperlipidemia, depression, hypothyroidism, memory deficits was brought in by family after she was found on the floor status post unwitnessed fall. patient is a limited historian given dementia and language barrier. Most of the history was provided by her son who is at bedside. She was found to be in her normal state around 10:00 this morning. However at around 1230 she was found lying on the floor status post unwitnessed fall. She could not remember any events. According to the son, she was found on the floor, denied loss of consciousness, hitting head. Of note at baseline she uses a walker, she has a caregiver. Last week she had couple of falls. Given her dementia she has good and bad days. On review of systems she could not provide any complaints. She arrived to the emergency room with cervical spine collar in place Vitals -afebrile, heart rate 66, respiratory rate 20, blood pressure 123/90, saturating at 98 on room air. Labs CBCs and BEP within normal limits Urine was cloudy, positive for nitrate, esterase, WBC, bacteria EKG showed sinus rhythm, PVC, rate 71, T-wave inversions V1 and V2 She received 1 bag of sodium chloride, ceftriaxone in the emergency room ct head and spine 1. No acute intracranial abnormality. There is mild left periorbital soft tissue swelling. 2. No acute osseous abnormality within the cervical spine. Moderate to severe spondylosis at C5-C6 and C6-C7. ------ 1. Urinary tract infection/cystitis Patient was brought in after unwitnessed fall. Given her dementia she could not provide any history. She could not offer any fever, chills, dysuria, frequency, urgency, lower abdominal pain. However her urine analysis showed nitrates, esterase, WBC, bacteria. Given her dementia and urine analysis findings will treat her for lower urinary tract infection * Admit to telemetry * Monitor vitals every shift * Monitor for fever, leukocytosis * Started on IV ceftriaxone IV 1000 milligrams daily * Follow-up urine cultures * Change antibiotics based on urine culture findings * Physical therapy consult * 1 bag of IV fluid 2. Unwitnessed fall Patient was brought in after unwitnessed fall. Head CT and cervical spine CT was within normal limits. Patient's son at bedside, reports history of multiple falls given dementia, forgets to use walker. * PT evaluation in the a.m. 3. Periorbital swelling she was found to have mild left periorbital soft tissue swelling both clinically and on imaging studies. Most likely after unwitnessed fall. Denies any redness , tenderness. Less likely periorbital cellulitis. * Continue to monitor for any worsening of redness, swelling, tenderness * low threshold to start antibiotics Chronic issues Hypertension continue amlodipine, lisinopril 10 and 20 mg daily Hyperlipidemia continue Lipitor 20 daily Hypothyroidism continue levothyroxine 125 mcg daily Dementia continue Namenda 10 daily Full code Regular diet Subcu heparin for DVT prophylaxis Pain pathway ordered
[2018-02-18 23:44] VITALS: BP 122/60
[2018-02-19 05:53] VITALS: BP 118/68
[2018-02-19 07:41] LABS: ABSOLUTE BASOPHIL COUNT 0 /CUMM (0.0-0.2); ABSOLUTE EOSINOPHIL COUNT 0 /CUMM (0.0-0.7); ABSOLUTE GRANULOCYTE CT 5.6 /CUMM (1.4-6.5); ABSOLUTE LYMPH COUNT 1.4 /CUMM (1.2-3.4); ABSOLUTE MONOCYTE COUNT 0.5 /CUMM (0.10-0.60); BASOPHIL % 0.2 % (0.0-2.0); EOSINOPHIL % 0.3 % (0-5); GRANULOCYTE % 73.3 % (42.2-75.2); HEMATOCRIT 37.1 % (37-47); MEAN CORPUSCULAR HGB 28.9 PG (27.0-31.0); MEAN CORPUSCULAR HGB CONC 34.1 G/DL (33.0-37.0); MEAN CORPUSCULAR VOLUME 84.6 FL (81.0-99.0); MEAN PLATELET VOLUME 7.3 FL (7.4-10.4); PLATELET COUNT 242 /CUMM (130-400); RBC DISTRIBUTION WIDTH 13.4 % (11.5-14.5); RED BLOOD CELL CT 4.39 /CUMM (4.20-5.40); WHITE BLOOD CELL COUNT 7.6 /CUMM (4.8-10.8)
--- NOTE | 2018-02-19 07:54 | PN- Housestaff ---
Subjective Follow-up For: uTI Subjective: Patient was seen and examined at bedside. She had no complaints. Denies fever, chills, nausea, vomiting, diarhea, constipation. Review of Systems Constitutional: Reports: see HPI. Objective Last 24 Hrs of Vital Signs/I&O Vital Signs Date Time Temp Pulse Resp B/P B/P Pulse O2 O2 Flow FiO2 Mean Ox Delivery Rate 02/19 2146 97.4 72 20 126/70 96 Room Air 02/19 1538 Room Air 02/19 1521 97.2 77 18 110/60 97 02/19 0919 65 130/68 16 0918 65 130/68 02/19 0800 99 Room Air 02/19 0553 98.4 72 20 118/68 100 02/18 2344 98.7 60 20 122/60 100 Room Air Intake & Output 02/19 1600 02/19 0800 02/19 0000 Intake Total 880 180 200 Output Total Balance 880 180 200 Intake, Oral 880 180 200 Number 1 Bowel Movements Patient 103 lb 103 lb 103 lb Weight Weight Chair scale Bed scale Bed scale Measurement Method Physical Exam General Appearance: Alert, Oriented X3, Cooperative, No Acute Distress Skin Temp/Moisture Exam: Warm/Dry HEENT: left periorbital edema Cardiovascular: Regular Rate, Normal S1, Normal S2 Lungs: Clear to Auscultation Abdomen: Normal Bowel Sounds, Soft Assessment/Plan Assessment: 77 year old female with PMH Dementia, HTN, HLD, Incontinence BIB EMS s/p being found down by son in kitchen for unknown amount of time. Patient with history of falls and most recent 3 days ago. Patient found to have UTI on ED workup and dehydration with BUN 18. Problem List: 1. Unwitnessed fall with unknown LOC or head trauma 2. UTI 3. Dehydration 4. Left periorbital swelling/redness VS T99.3 P66 RR20 BP123/90 Sat 98%RA Labs: WBC 7.6 H/H 12.7/38.0 Plt 263; BUN 18/ Cr 0.6; AST 42 CT Head/C-spine 1. No acute intracranial abnormality. There is mild left periorbital soft tissue swelling. 2. No acute osseous abnormality within the cervical spine. Moderate to severe spondylosis at C5-C6 and C6-C7. CT neck 1.Unwitnessed fall-possibly mechanical vs infectious from UTI ([facility]) -PT evaluation 2.UTI -IV Ceftriaxone -Gram negative rods -Tailor abx as appropriate for sensitivities 3.Dehydration -IVF 1L in ED -Monitor electrolytes; BUN 4.Left periorbital swelling/redness-possibly from fall vs early cellulitic infection -currently non tender though patient exam not reliable in setting of dementia -low threshold for cellulitic infection; continue to monitor -will observe off abx at this time -consider hygiene for bilateral eye crusting DVT prophylaxis: Heparin 5000units subcu/ALPS Code status: FC Problem List: 1. Dehydration 2. UTI (urinary tract infection) 3. Fall Pain Ratin Pain Location: na Pain Goal: Remain pain free Pain Plan: na Tomorrow's Labs & Rationales: cbc and bep
--- NOTE | 2018-02-19 11:09 | PN- Att Addend ---
Attending Addendum Attending Brief Note Patient in bed. Physical therapists evaluating the patient, just sat at edge of the bed. Little unsteady on her feet. Looks a little brighter today. Vital signs are stable temperature max 99 1. No major changes on physical examination. White count 7600 today. Potassium is 3.5. Urine culture is pending. We will continue present treatment. Have a PT reevaluation in the morning. 24 TOTALS 02/19 0000 02/18 0000 Intake Total Output Total Balance Patient 103 lb Weight Weight Bed scale Measurement Method Current Medications Sig/Nicki Start time Last Medication Dose Route Stop Time Status Admin Acetaminophen 650 MG Q6P PRN 02/18 2130 AC PO Acetaminophen 1,000 MG Q6P PRN 02/18 2130 AC IV Amlodipine Besylate 10 MG DAILY 02/19 0900 AC 02/19 PO 0919 Atorvastatin Calcium 20 MG 1700 02/19 1700 AC PO Ceftriaxone Sodium 1,000 MG DAILY 02/19 0900 AC 02/19 IV 0918 Ceftriaxone Sodium 0 .STK-MED ONE 02/18 2034 DC .ROUTE Ceftriaxone Sodium 1,000 MG ONCE ONE 02/18 2030 DC 02/18 IV 02/18 Cholecalciferol 1,000 IU DAILY 02/19 0900 AC 02/19 PO 0918 Heparin Sodium 5,000 UNIT Q8 02/18 2200 AC 02/19 (Porcine) SC 0601 Levothyroxine Sodium 0.125 MG DAILY AC 02/19 0700 AC PO Lisinopril 20 MG DAILY 02/19 0900 AC 02/19 PO 0918 Memantine 10 MG DAILY 02/19 0900 AC 02/19 PO 0918 Sodium Chloride 1,000 ML ONCE ONE 02/18 1515 DC 02/18 IV 02/18 2154 1607 Laboratory Tests 02/19/18 0650: Anion Gap 9, Estimated GFR > 60, BUN/Creatinine Ratio 32.0 H, CBC w Diff NO MAN DIFF REQ, RBC 4.39, MCV 84.6, MCH 28.9, MCHC 34.1, RDW 13.4, MPV 7.3 L, Gran % 73.3, Lymphocytes % 19.0 L, Monocytes % 7.2, Eosinophils % 0.3, Basophils % 0.2 , Absolute Granulocytes 5.6, Absolute Lymphocytes 1.4, Absolute Monocytes 0.5, Absolute Eosinophils 0, Absolute Basophils 0 02/18/18 1600: Anion Gap 5, Estimated GFR > 60, BUN/Creatinine Ratio 30.0 H, Glucose 107 H, Calcium 9.8, Total Bilirubin 0.4, AST 42 H, ALT 43, Alkaline Phosphatase 76, Troponin I < 0.01, Total Protein 6.7, Albumin 3.8, Globulin 2.9, Albumin/ Globulin Ratio 1.3, CBC w Diff NO MAN DIFF REQ, RBC 4.44, MCV 85.6, MCH 28.9, MCHC 33.7, RDW 13.4, MPV 6.8 L, Gran % 80.8 H, Lymphocytes % 12.1 L, Monocytes % 6.9, Eosinophils % 0, Basophils % 0.2, Absolute Granulocytes 7.8 H, Absolute Lymphocytes 1.2, Absolute Monocytes 0.7 H, Absolute Eosinophils 0, Absolute Basophils 0 02/18/18 1434: Urine Color YEL, Urine Clarity HAZY H, Urine pH 6.5, Ur Specific [place] 1.025, Urine Protein TRACE H, Urine Ketones 15 H, Urine Nitrite POS H, Urine Bilirubin NEG, Urine Urobilinogen 0.2, Ur Leukocyte Esterase SMALL H, Ur Microscopic SEDIMENT EXAMINED, Urine RBC RARE, Urine WBC 15-25 H, Urine Bacteria MANY H, Urine Mucus MOD H, Urine Hemoglobin TRACE-INTACT, Urine Glucose NEG Microbiology Date/Time Procedure - Status Source Growth 02/18 1437 Urine Culture - RECD URINE ROUT Vital Signs Date Time Temp Pulse Resp B/P B/P Pulse O2 O2 Flow FiO2 Mean Ox Delivery Rate 02/19 0919 65 130/68 02/19 0918 65 130/68 02/19 0553 98.4 72 20 118/68 100 02/18 2344 98.7 60 20 122/60 100 Room Air 02/18 2221 98.8 74 18 175/79 98 Room Air 02/18 2120 98.9 60 20 178/74 100 Room Air 02/18 1921 99.0 68 20 142/60 97 Room Air 02/18 1743 Room Air 02/18 1425 99 Room Air 02/18 1407 99.3 66 20 123/90 98 Room Air
[2018-02-19 15:21] VITALS: BP 110/60
[2018-02-19 21:46] VITALS: BP 126/70
[2018-02-20 06:40] VITALS: BP 130/78
[2018-02-20 08:01] LABS: ABSOLUTE BASOPHIL COUNT 0 /CUMM (0.0-0.2); ABSOLUTE EOSINOPHIL COUNT 0 /CUMM (0.0-0.7); ABSOLUTE GRANULOCYTE CT 4.9 /CUMM (1.4-6.5); ABSOLUTE LYMPH COUNT 1.3 /CUMM (1.2-3.4); ABSOLUTE MONOCYTE COUNT 0.6 /CUMM (0.10-0.60); BASOPHIL % 0.3 % (0.0-2.0); EOSINOPHIL % 0.5 % (0-5); GRANULOCYTE % 71.4 % (42.2-75.2); HEMATOCRIT 39.1 % (37-47); MEAN CORPUSCULAR HGB 28.6 PG (27.0-31.0); MEAN CORPUSCULAR HGB CONC 33.6 G/DL (33.0-37.0); MEAN CORPUSCULAR VOLUME 85.1 FL (81.0-99.0); MEAN PLATELET VOLUME 7.5 FL (7.4-10.4); PLATELET COUNT 255 /CUMM (130-400); RBC DISTRIBUTION WIDTH 13.5 % (11.5-14.5); WHITE BLOOD CELL COUNT 6.9 /CUMM (4.8-10.8)
--- NOTE | 2018-02-20 10:45 | PN- Att Addend ---
Attending Addendum Attending Brief Note Patient is looking better facial swelling is down around the orbit. Her appetite is improved.. Vital signs are stable, no fever. No other changes on physical examination. Her white count today 6900. The urine culture shows more than 100,000 colonies of gram-negative rods identification and susceptibilities are pending. Continue present treatment and have a PT reevaluation now that the patient looks and feels a little better. Intake & Output 02/20 1600 02/20 0400 02/19 1600 02/19 0400 02/18 1600 02/18 0400 Intake Total 50 300 1060 200 Output Total 250 Balance 50 50 1060 200 Intake, IV 0 Intake, Oral 50 300 1060 200 Number 0 1 Bowel Movements Output, Urine 250 Patient 103 lb 103 lb 140 lb Weight Weight Chair scale Bed scale Estimated Measurement Method Current Medications Sig/Nicki Start time Last Medication Dose Route Stop Time Status Admin Acetaminophen 650 MG Q6P PRN 02/18 2130 AC PO Acetaminophen 1,000 MG Q6P PRN 02/18 2130 AC IV Amlodipine Besylate 10 MG DAILY 02/19 09 AC 02/20 PO 0812 Atorvastatin Calcium 20 MG 1700 02/19 1700 AC 02/19 PO 1721 Ceftriaxone Sodium 1,000 MG DAILY 02/19 09 AC 02/20 IV 1035 Cholecalciferol 1,000 IU DAILY 02/19 09 AC 02/20 PO 0812 Heparin Sodium 5,000 UNIT Q8 02/18 2200 AC 02/20 (Porcine) SC 0639 Levothyroxine Sodium 0.125 MG DAILY AC 02/19 0700 AC 02/20 PO 0639 Lisinopril 20 MG DAILY 02/19 09 AC 02/20 PO 0812 Memantine 10 MG DAILY 02/19 09 AC 02/20 PO 0811 Patient Medication 1 ED ONE ONE 02/19 1645 TN Teaching ED 02/19 1646 Laboratory Tests 02/20/18 0640: Anion Gap 10, Estimated GFR > 60, BUN/Creatinine Ratio 27.1 H, CBC w Diff NO MAN DIFF REQ, RBC 4.60, MCV 85.1, MCH 28.6, MCHC 33.6, RDW 13.5, MPV 7.5, Gran % 71.4, Lymphocytes % 19.4 L, Monocytes % 8.4, Eosinophils % 0.5, Basophils % 0.3 , Absolute Granulocytes 4.9, Absolute Lymphocytes 1.3, Absolute Monocytes 0.6, Absolute Eosinophils 0, Absolute Basophils 0 02/19/18 0650: Anion Gap 9, Estimated GFR > 60, BUN/Creatinine Ratio 32.0 H, CBC w Diff NO MAN DIFF REQ, RBC 4.39, MCV 84.6, MCH 28.9, MCHC 34.1, RDW 13.4, MPV 7.3 L, Gran % 73.3, Lymphocytes % 19.0 L, Monocytes % 7.2, Eosinophils % 0.3, Basophils % 0.2 , Absolute Granulocytes 5.6, Absolute Lymphocytes 1.4, Absolute Monocytes 0.5, Absolute Eosinophils 0, Absolute Basophils 0 02/18/18 1600: Anion Gap 5, Estimated GFR > 60, BUN/Creatinine Ratio 30.0 H, Glucose 107 H, Calcium 9.8, Total Bilirubin 0.4, AST 42 H, ALT 43, Alkaline Phosphatase 76, Troponin I < 0.01, Total Protein 6.7, Albumin 3.8, Globulin 2.9, Albumin/ Globulin Ratio 1.3, CBC w Diff NO MAN DIFF REQ, RBC 4.44, MCV 85.6, MCH 28.9, MCHC 33.7, RDW 13.4, MPV 6.8 L, Gran % 80.8 H, Lymphocytes % 12.1 L, Monocytes % 6.9, Eosinophils % 0, Basophils % 0.2, Absolute Granulocytes 7.8 H, Absolute Lymphocytes 1.2, Absolute Monocytes 0.7 H, Absolute Eosinophils 0, Absolute Basophils 0 02/18/18 1434: Urine Color YEL, Urine Clarity HAZY H, Urine pH 6.5, Ur Specific [place] 1.025, Urine Protein TRACE H, Urine Ketones 15 H, Urine Nitrite POS H, Urine Bilirubin NEG, Urine Urobilinogen 0.2, Ur Leukocyte Esterase SMALL H, Ur Microscopic SEDIMENT EXAMINED, Urine RBC RARE, Urine WBC 15-25 H, Urine Bacteria MANY H, Urine Mucus MOD H, Urine Hemoglobin TRACE-INTACT, Urine Glucose NEG Microbiology 02/18 1437 URINE ROUT: Urine Culture - RES GRAM NEGATIVE RODS Microbiology 02/18 1437 URINE ROUT: Urine Culture - RES GRAM NEGATIVE RODS Vital Signs Date Time Temp Pulse Resp B/P B/P Pulse O2 O2 Flow FiO2 Mean Ox Delivery Rate 02/21 812 75 110/66 02/20 0812 75 110/66 02/20 0640 97.9 67 20 130/78 100 02/19 2146 97.4 72 20 126/70 96 Room Air 02/19 1538 Room Air 02/19 1521 97.2 77 18 110/60 97
[2018-02-20 14:48] VITALS: BP 110/60
[2018-02-20 22:28] VITALS: BP 112/60
[2018-02-21 06:09] VITALS: BP 118/64
--- NOTE | 2018-02-21 09:23 | PN- Housestaff ---
Subjective Follow-up For: Fall UTI Left periorbital swelling/erythema Subjective: Patient seen and examined. She has minimal facial erythema and edema. The patient is Italian-speaking and has severe dementia at baseline. She was minimally communicative when asked if she had any complaints. The patient has stable vitals in the saturating 98% on room air. She is afebrile. Review of Systems Constitutional: Reports: no symptoms. Objective Last 24 Hrs of Vital Signs/I&O Vital Signs Date Time Temp Pulse Resp B/P B/P Pulse O2 O2 Flow FiO2 Mean Ox Delivery Rate 02/21 08 96 Room Air 02/21 0754 60 112/60 02/21 0609 98.4 60 20 118/64 98 Room Air 02/20 2228 98.2 85 19 112/60 96 Room Air Intake & Output 02/21 1600 02/21 0802/21 0000 Intake Total Output Total Balance Number 1 1 Bowel Movements Patient 103 lb Weight Physical Exam General Appearance: Alert, Cooperative, No Acute Distress Skin: No Rashes, periorbital minimal edema and erythema around the left eye. Skin Temp/Moisture Exam: Warm/Dry Sepsis Skin Exam (color): Normal for Ethnicity HEENT: PERRLA, EOMI, Mucous Membr. moist/pink Cardiovascular: Regular Rate, Normal S1, Normal S2, No Murmurs Lungs: Clear to Auscultation, Normal Air Movement Abdomen: Normal Bowel Sounds, Soft, No Tenderness Extremities: No Clubbing, No Cyanosis, No Edema Current Medications: Current Medications Sig/Nicki Start time Last Medication Dose Route Stop Time Status Admin Acetaminophen 650 MG Q6P PRN 02/18 2130 AC PO Acetaminophen 1,000 MG Q6P PRN 02/18 2130 AC IV Amlodipine Besylate 10 MG DAILY 02/19 09 AC 02/21 PO 0754 Atorvastatin Calcium 20 MG 1700 02/19 1700 AC 02/20 PO 1609 Ceftriaxone Sodium 1,000 MG DAILY 02/19 0900 DC 02/21 IV 0754 Cephalexin 250 MG Q6 02/21 1201 AC 02/21 PO 1448 Cholecalciferol 1,000 IU DAILY 02/19 09 AC 02/21 PO 0753 Heparin Sodium 5,000 UNIT Q8 02/18 2200 AC 02/21 (Porcine) SC 1448 Levothyroxine Sodium 0.125 MG DAILY AC 02/19 0700 AC 02/21 PO 0614 Lisinopril 20 MG DAILY 02/19 0900 AC 02/21 PO 0754 Memantine 10 MG DAILY 02/19 09 AC 02/21 PO 0754 Last 24 Hrs of Lab/Daren Results Last 24 Hrs of Labs/Mics: Laboratory Tests 02/21/18 0834: Anion Gap 10, Estimated GFR > 60, BUN/Creatinine Ratio 24.3, CBC w Diff NO MAN DIFF REQ, RBC 4.67, MCV 85.3, MCH 28.8, MCHC 33.7, RDW 13.7, MPV 8.1, Gran % 67.4, Lymphocytes % 22.7, Monocytes % 8.0, Eosinophils % 1.5, Basophils % 0.4, Absolute Granulocytes 4.7, Absolute Lymphocytes 1.6, Absolute Monocytes 0.6, Absolute Eosinophils 0.1, Absolute Basophils 0 Assessment/Plan Assessment: 77 year old female with PMH Dementia, HTN, HLD, Incontinence BIB EMS s/p being found down by son in kitchen for unknown amount of time. Patient with history of falls and most recent 3 days ago. Patient found to have UTI on ED workup and dehydration with BUN 18. Problem List: 1. Unwitnessed fall with unknown LOC or head trauma 2. UTI 3. Dehydration 4. Left periorbital swelling/redness VS T99.3 P66 RR20 BP123/90 Sat 98%RA Labs: WBC 7.6 H/H 12.7/38.0 Plt 263; BUN 18/ Cr 0.6; AST 42 CT Head/C-spine 1. No acute intracranial abnormality. There is mild left periorbital soft tissue swelling. 2. No acute osseous abnormality within the cervical spine. Moderate to severe spondylosis at C5-C6 and C6-C7. 1.Unwitnessed fall-possibly mechanical vs infectious from UTI ([facility]) -Patient was evaluated by physical therapy and they have stated that she will go to [facility] 2.UTI -Patient is found to be growing Klebsiella that is sensitive to Augmentin, Cipro , Bactrim, Keflex. I have started the patient on Keflex and we will continue for a total of 5 days of total treatment. 3.Left periorbital swelling/redness-possibly from fall vs early cellulitic infection -currently non tender though patient exam not reliable in setting of dementia -low threshold for cellulitic infection; continue to monitor -will observe off abx at this time 4. Hypokalemia: Resolved DVT prophylaxis: Heparin 5000units subcu/ALPS Code status: FC Problem List: 1. Head injury due to trauma 2. UTI (urinary tract infection) 3. Fall Pain Ratin Pain Location: patient doesnt respond when questioned Pain Goal: Remain pain free Pain Plan: na Tomorrow's Labs & Rationales: pt to be discharged
[2018-02-21 10:13] LABS: ABSOLUTE BASOPHIL COUNT 0 /CUMM (0.0-0.2); ABSOLUTE EOSINOPHIL COUNT 0.1 /CUMM (0.0-0.7); ABSOLUTE GRANULOCYTE CT 4.7 /CUMM (1.4-6.5); ABSOLUTE LYMPH COUNT 1.6 /CUMM (1.2-3.4); ABSOLUTE MONOCYTE COUNT 0.6 /CUMM (0.10-0.60); BASOPHIL % 0.4 % (0.0-2.0); EOSINOPHIL % 1.5 % (0-5); GRANULOCYTE % 67.4 % (42.2-75.2); HEMATOCRIT 39.8 % (37-47); MEAN CORPUSCULAR HGB 28.8 PG (27.0-31.0); MEAN CORPUSCULAR HGB CONC 33.7 G/DL (33.0-37.0); MEAN CORPUSCULAR VOLUME 85.3 FL (81.0-99.0); MEAN PLATELET VOLUME 8.1 FL (7.4-10.4); PLATELET COUNT 257 /CUMM (130-400); RBC DISTRIBUTION WIDTH 13.7 % (11.5-14.5); RED BLOOD CELL CT 4.67 /CUMM (4.20-5.40)
--- NOTE | 2018-02-21 12:54 | PN- Pulmonary ---
Subjective HPI/Critical Care Issues: Patient was seen and examined at bedside. She had no complaints. Denies fever, chills, nausea, vomiting, diarhea, constipation. Review of Systems Constitutional: Reports: see HPI. Objective Current Medications: Current Medications Sig/Nicki Start time Last Medication Dose Route Stop Time Status Admin Acetaminophen 650 MG Q6P PRN 02/18 2130 AC PO Acetaminophen 1,000 MG Q6P PRN 02/18 2130 AC IV Amlodipine Besylate 10 MG DAILY 02/19 09 AC 02/21 PO 0754 Atorvastatin Calcium 20 MG 1700 02/19 1700 AC 02/20 PO 1609 Ceftriaxone Sodium 1,000 MG DAILY 02/19 09 DC 02/21 IV 0754 Cephalexin 250 MG Q6 02/21 1201 AC PO Cholecalciferol 1,000 IU DAILY 02/19 09 AC 02/21 PO 0753 Heparin Sodium 5,000 UNIT Q8 02/18 2200 AC 02/21 (Porcine) SC 0614 Levothyroxine Sodium 0.125 MG DAILY AC 02/19 0700 AC 02/21 PO 0614 Lisinopril 20 MG DAILY 02/19 0900 AC 02/21 PO 0754 Memantine 10 MG DAILY 02/19 09 AC 02/21 PO 0754 Patient Medication 1 ED ONE ONE 02/20 1500 DC 02/20 Teaching ED 02/20 1501 1609 Vital Signs & I&O Last 24 Hrs of Vitals and I&O: Vital Signs Date Time Temp Pulse Resp B/P B/P Pulse O2 O2 Flow FiO2 Mean Ox Delivery Rate 02/21 0800 96 Room Air 02/21 0754 60 112/60 02/21 0609 98.4 60 20 118/64 98 Room Air 02/20 2228 98.2 85 19 112/60 96 Room Air 02/20 1448 98.7 62 18 110/60 95 Room Air Intake & Output 02/21 1600 02/21 0800 02/21 0000 Intake Total Output Total Balance Number 1 1 Bowel Movements Patient 103 lb Weight Impression/Plan Impression/Plan Impression/Plan: This is a 77-year-old female with past medical history significant for severe dementia, hypertension, hyperlipidemia, depression, hypothyroidism, memory deficits was brought in by family after she was found on the floor status post unwitnessed fall. Issues UTI Unwitnessed fall stable Dementia HTN, HLD, Mild periorbital swelling stable Other issues stable REC Ok to dc COnt current meds\ DC on all the meds the pt is on in house only (CMR should reflect that)
--- NOTE | 2018-02-21 12:55 | Discharge Summary ---
Visit Information Visit Dates Admission Date: 02/18/18 Discharge Date: 02/21/18 Hospital Course Course Attending Physician: Babar Puente MD Primary Care Physician: Babar Puente MD Hospital Course: 77-year-old female with past medical history significant for severe dementia, hypertension, hyperlipidemia, depression, hypothyroidism, memory deficits was brought in by family after she was found on the floor status post unwitnessed fall. Vitals on presentation -afebrile, heart rate 66, respiratory rate 20, blood pressure 123/90, saturating at 98 on room air. Labs: WBC 9.6 H/H 12.8/38.0 Plt 263; BUN 18/ Cr 0.6; AST 42 UA: Nitrate/leuko esterase postive. CT Head/C-spine 1. No acute intracranial abnormality. There is mild left periorbital soft tissue swelling. 2. No acute osseous abnormality within the cervical spine. Moderate to severe spondylosis at C5-C6 and C6-C7. CT neck. [facility] for treatment and management of mechanical fall and UTI She was started on Ceftriaxone and treated for . She remained afebrile with no leukocytosis during hospital stay. Her urine culture was positive for kleibsella. She was also found to have left eye mild periorbital swelling which was attributed to her fall, on subsequent days, her swelling diminished. PT evaluation was obtained and the final reccomendation was that patient will require short term rehab (STR). Pt was discharged to STR on with cephalexin abx to complete a 7 day course treatment Allergies: Coded Allergies: No Known Allergies (02/18/18) Disposition Summary Disposition Principal Diagnosis: mechanical fall Additional Diagnosis: UTI Discharge Disposition: SNF Discharge Instructions General Discharge Information Code Status: Full Code Patient's Diet: regular Patient's Activity: As tolerated Follow-Up Instructions/Appts: f/u with PCP within 1 week Complete ABX. Medications at Discharge Discharge Medications: Stop taking the following medications: Escitalopram Oxalate (Escitalopram Oxalate) 10 MG TABLET ORAL DAILY Qty = 30 Continue taking these medications: Amlodipine Besylate/Benazepril (Amlodipine-Benazepril 10-20 MG) 10 MG-20 MG CAPSULE 1 Capsule ORAL DAILY Qty = 90 Comments: NOT GIVEN, NORVASC 10 MG GIVEN 2/9/18 AT 1020 AM Memantine HCl (Namenda XR) 14 MG CAP.SPR.24 1 Capsule ORAL DAILY Qty = 90 Comments: Last Taken: 08/15/17 Time: 1020 AM Atorvastatin Calcium (Atorvastatin Calcium) 20 MG TABLET 1 Tablet ORAL DAILY Qty = 90 Comments: Last Taken: 08/15/17 Time: 1020 AM Levothyroxine Sodium (Levothyroxine Sodium) 125 MCG TABLET 1 Tablet ORAL DAILY Qty = 90 Comments: Last Taken: 08/15/17 Time: 630 AM Cholecalciferol (Vitamin D3) (Vitamin D) 1,000 UNIT TABLET 1 Tablet ORAL DAILY Comments: Last Taken: 08/15/17 Time: 1020 AM Fish Oil/Borage/Flax/Om3,6,9#1 ([place] 3-6-9 1,200 MG Softgel) (Unknown Strength) CAPSULE Unknown Dose ORAL DAILY Comments: NOT GIVEN IN HOSPITAL Copies To: Cindi ROBLES,Babar
[2018-02-21] MEDS ORDERED: CEPHALEXIN250 M2 PO ×2 (13:03→13:16)
--- NOTE | 2018-02-21 13:04 | Patient Discharge Instructions ---
Discharge Instructions General Discharge Information You were seen/treated for: UTI PERIORBITAL SWELLING FALL Special Instructions: PLEASE FOLLOW UP WITH PCP IN ONE WEEK Diet Continue normal diet: Yes Activity Full Activity/No Limits: Yes Acute Coronary Syndrome Inclusion Criteria At DC or during hospital stay patient has or had the following: ACS DIAGNOSIS No Discharge Core Measures Meds if any: Prescribed or Continued at Discharge Meds if any: NOT Prescribed or Continued at Discharge Congestive Heart Failure Inclusion Criteria At DC or during hospital stay patient has or had the following: CHF DIAGNOSIS No Discharge Core Measures Meds if any: Prescribed or Continued at Discharge Meds if any: NOT Prescribed or Continued at Discharge Cerebrovascular accident Inclusion Criteria At DC or during hospital stay patient has or had the following: CVA/TIA Diagnosis No Discharge Core Measures Meds if any: Prescribed or Continued at Discharge Meds if any: NOT Prescribed or Continued at Discharge Venous thromboembolism Inclusion Criteria VTE Diagnosis No VTE Type NONE VTE Confirmed by (Test) NONE Discharge Core Measures - Per Current guidelines, there needs to be overlap - treatment for the first 5 days of Warfarin therapy. - If discharged on Warfarin prior to 5 days of - overlap therapy, the patient will need to be - assessed for post discharge needs including - *Post discharge parental anticoagulation - *Warfarin and/or parental anticoagulation education - *Follow up date to check INR post discharge At least 5 days overlap therapy as Inpatient No Meds if any: Prescribed or Continued at Discharge Note: Overlap Therapy is Warfarin and Anticoagulant Meds if any: NOT Prescribed or Continued at Discharge
[2018-02-21] MEDS ORDERED: ESCITALOPRAM OX10 MG PO (14:40)
[2018-02-21 15:34] VITALS: BP 112/60
== END 2018-02-21 17:50 | DRG 690 ==
LOC: ERH 14:05 → ERHI 20:19 → 2NA 20:19 → ENRESERV 22:10 → ENTRNSPT 22:35 → EDTRNSPT 22:36 → EDTRNSPTSTS 22:36 → 2NA 22:42 → CMPTRNSPT 22:50 → ENPENDDIS 02-21 14:05 → 2NA 02-21 17:50
PROVIDERS: Emergency Medicine; Hospitalist
DX: N39.0 Urinary tract infection, site not specified (principal); E86.0 Dehydration; F02.80 Dementia in other diseases classified elsewhere, unspecified severity, without behavioral disturbance, psychotic disturbance, mood disturbance, and anxiety; G30.9 Alzheimer's disease, unspecified; B96.1 Klebsiella pneumoniae [K. pneumoniae] as the cause of diseases classified elsewhere; Y92.009 Unspecified place in unspecified non-institutional (private) residence as the place of occurrence of the external cause; Z91.81 History of falling; R32 Unspecified urinary incontinence; E78.5 Hyperlipidemia, unspecified; E87.6 Hypokalemia; E03.9 Hypothyroidism, unspecified; S00.11XA Contusion of right eyelid and periocular area, initial encounter; W18.30XA Fall on same level, unspecified, initial encounter; Y92.000 Kitchen of unspecified non-institutional (private) residence as the place of occurrence of the external cause; F32.9 Major depressive disorder, single episode, unspecified; I10 Essential (primary) hypertension
CPT/HCPCS: 2NAP; 36415; 36592; 81001; 82436; 87086; 93005; 93010; 97116-GO; 97162-GP; 97530-GO; J0696; J1644